=== PATIENT | male | born 1935 | race Caucasian/White ===

== ENCOUNTER 2017-09-26 09:12 | Day surgery (SDC) | payer MEDICARE, MEDICAID ==
[2017-09-25 14:53] VITALS: BMI 25.0
--- NOTE | 2017-09-26 08:09 | CP.SDSHP ---
Same Day Surgery H & P - History Proposed Procedure: colonoscopy - Previous Medical/Surgical History Previous Surgical History: prostate carcinoma radition - Date & Time Date: 09/26/17 Time: 08:09 Short Stay Discharge - Short Stay Discharge Admitting Diagnosis/Reason for Visit: APPENDICEAL MASS Disposition: HOME/ ROUTINE Referrals: Terry Dc MD [Primary Care Provider] -
[2017-09-26 09:36] VITALS: O2SAT 100
[2017-09-26] MEDS ORDERED: Lidocaine Hydrochloride 5 ML INJ ONE (11:35)
[2017-09-26] MEDS ORDERED: Propofol 10 mg/ml Inj (20 ML) ONE (11:35)
[2017-09-26 12:11] VITALS: TEMP 97.5
[2017-09-26 12:46] VITALS: BP 139/77; PULSE 76; RESP 12
== END 2017-09-26 13:23 | disposition home or self-care (01) ==
LOC: C.ENDO 09:12
PROVIDERS: ATTEND Colon & Rectal Surgery
DX: D49.0 Neoplasm of unspecified behavior of digestive system (principal); K57.30 Diverticulosis of large intestine without perforation or abscess without bleeding; K64.8 Other hemorrhoids
CPT/HCPCS: 45378; J2704

== ENCOUNTER 2017-10-13 10:33 | Day surgery (SDC) | payer MEDICARE, MEDICAID ==
[2017-09-25 14:53] VITALS: BMI 25.0
--- NOTE | 2017-10-13 11:19 | RAD ---
Date of service: 10/13/2017 HISTORY: STAT CXR DONE IN [facility].. COMPARISON: No prior. TECHNIQUE: Chest PA and lateral FINDINGS: LUNGS: No active pulmonary disease. PLEURA: No significant pleural effusion identified. No pneumothorax apparent. CARDIOVASCULAR: Atherosclerotic aortic calcifications. Cardiomediastinal silhouette within normal limits. OSSEOUS STRUCTURES: Degenerative changes. VISUALIZED UPPER ABDOMEN: Normal. OTHER FINDINGS: None. IMPRESSION: No active disease.
[2017-10-13] MEDS ORDERED: Gentamicin 160 MG in Sodium Chloride 0.9% 100 ML IVPB ONE (13:37)
[2017-10-13] MEDS ORDERED: Ciprofloxacin 400mg/200ml D5W 400 MG/200 ML BAG IVPB ONE (14:22)
[2017-10-13] MEDS ORDERED: Iohexol 240 (50 ml) ONE (14:23)
[2017-10-13] MEDS ORDERED: Propofol 10 mg/ml Inj (20 ML) ONE (14:37)
[2017-10-13] MEDS ORDERED: Lidocaine 2% Jelly (Uro-Jet) ONE ×2 (14:38→14:56)
--- NOTE | 2017-10-13 15:00 | PCM.SURG1 ---
Surgeon's Initial Post Op Note - Surgeon's Notes Surgeon: Jacqueline Supervisor Net Making: franck Type of Anesthesia: General LMA Anesthesia Administered By: staff Pre-Operative Diagnosis: BPH /hematuria Operative Findings: hematuria due to BPH Post-Operative Diagnosis: SAME Operation Performed: Cysto Specimen/Specimens Removed: na Estimated Blood Loss: EBL {In ML}: 0 Blood Products Given: N/A Drains Used: No Drains Post-Op Condition: Good Date of Surgery/Procedure: 10/13/17 Time of Surgery/Procedure: 14:59
[2017-10-13 15:18] VITALS: O2SAT 100
[2017-10-13] MEDS ORDERED: HYDROmorphone 0.5 mg/0.5 ml ISec IVP PRN (15:24)
[2017-10-13 16:48] VITALS: RESP 16
[2017-10-13 16:52] VITALS: BP 152/82; PULSE 66; TEMP 97.7
--- NOTE | 2017-10-14 00:31 | OP ---
Copied To: Jasen Phillips MD Attending MD: Jasen Phillips MD PROCEDURE DATE: 10/13/2017 PREOPERATIVE DIAGNOSIS: Hematuria. POSTOPERATIVE DIAGNOSIS: Hematuria secondary to benign prostatic hyperplasia with bladder outlet obstruction. DESCRIPTION OF PROCEDURE: As follows: The patient was asked to sign a detailed informed consent. He was given a full explanation of the risks, complications, and limitations of this procedure. He consented to the procedure, was willing to accept the risk and was brought into the room, and draped and prepped in the usual manner. He received prophylactic antibiotics. He was cystoscoped with #21 Storz panendoscope. The pendulous and membranous urethras were normal. The prostatic urethra showed trilobar hypertrophy. It was very friable and bled very easily. The bladder was entered atraumatically. There was +4 trabeculation with several small diverticulum. There was no evidence of urothelial tumor or stones. Based on these findings, the patient is a candidate for GreenLight laser to remove this friable tissue. Jasen Phillips MD
--- NOTE | 2017-10-14 08:52 | CARD ---
APPROVED REPORT Date of service: 10/13/2017 EKG Measurement Heart [id number] <Conclusion> Normal sinus rhythm Nonspecific ST abnormality Abnormal ECG
== END 2017-10-13 16:40 | disposition home or self-care (01) ==
LOC: C.SDS 10:33
PROVIDERS: ATTEND Urology
DX: N40.0 Benign prostatic hyperplasia without lower urinary tract symptoms (principal); N32.0 Bladder-neck obstruction; R31.9 Hematuria, unspecified; N32.3 Diverticulum of bladder
CPT/HCPCS: 52000; 71046; 93005; J0744; J1580

== ENCOUNTER 2018-03-19 07:45 | Inpatient (IN) | payer MEDICARE, MEDICAID ==
[2017-09-25 14:53] VITALS: BMI 25.0
[2018-03-20] MEDS ORDERED: ceFAZolin 1 gm in NS 1 GM/100 ML BAG IVPB ONE (12:16)
[2018-03-20] MEDS ORDERED: metroNIDAZOLE IV 500 mg/100 ml 500 MG/100 ML BAG ONE (12:16)
[2018-03-20] MEDS ORDERED: Propofol 10 mg/ml Inj (20 ML) ONE (12:25)
[2018-03-20] MEDS ORDERED: Rocuronium 10 mg/ml (5 ml) ONE (12:32)
[2018-03-20] MEDS ORDERED: Phenylephrine 10 mg/ml Inj ONE (12:49)
[2018-03-20] MEDS ORDERED: Morphine 4 MG/ML VIAL ONE (14:16)
[2018-03-20] MEDS ORDERED: Neostigmine 1:1000 (1 mg/ml) Inj ONE (14:42)
[2018-03-20] MEDS ORDERED: Bupivacaine Liposomal Inj 20 ml INFIL ONE (14:45)
[2018-03-20] MEDS ORDERED: Sodium Chloride 0.9% 20 ML IV ONE (14:48)
--- NOTE | 2018-03-20 15:12 | PCM.SURG1 ---
Surgeon's Initial Post Op Note - Surgeon's Notes Surgeon: Dr. Feliciano Linoleum Mechanic: Dr. Mims PGY-4 Type of Anesthesia: General Endo, Local (Explarel) Pre-Operative Diagnosis: Dilated, inflammed appendix Operative Findings: dilated, inflammed appendix, sent for frozen, no malignancy Post-Operative Diagnosis: Chronic appendicitis Operation Performed: Laparoscopic converted to open appendectomy Specimen/Specimens Removed: appendix Estimated Blood Loss: EBL {In ML}: 20 Blood Products Given: N/A Drains Used: No Drains Post-Op Condition: Fair Date of Surgery/Procedure: 03/20/18 Time of Surgery/Procedure: 15:12
[2018-03-20] MEDS: HYDROmorphone 0.5 mg/0.5 ml ISec IVP PRN ×2 (15:42→16:22)
[2018-03-20] MEDS ORDERED: Lactated Ringer's 1,000 ML IV SCH (16:15)
[2018-03-20] MEDS: metroNIDAZOLE IV 500 mg/100 ml 500 MG/100 ML BAG IVPB SCH (21:14)
[2018-03-20] MEDS: Morphine 4 MG/ML VIAL IVP PRN (22:43)
--- NOTE | 2018-03-21 01:59 | OP ---
PROCEDURE DATE: 03/20/2018 PREOPERATIVE DIAGNOSIS: Possible appendicitis. POSTOPERATIVE DIAGNOSIS: Possible appendicitis. PROCEDURE CARRIED OUT: Attempted laparoscopic and then open appendectomy. SURGEON: Kaleb Feliciano Jr., MD STITCH BONDING MACHINE TENDER HELPER: Andreia Mims DO ANESTHESIOLOGIST: Al Fung DO INDICATIONS: The patient is an elderly man with history of abdominal pain, subsequently found to have a huge cyst in his abdomen on the right side. It felt to be somehow related to his appendix. This was a number of months ago. He subsequently had followup studies done which showed that there still was a large cyst, but smaller than it had been. OPERATIVE FINDINGS: Laparoscopically, we were able to look in, identify what appeared to be a mass arising from the cecum. Attempts at dissecting this were unsuccessful. There were numerous adhesions which are documented on the chart. After we had done this, we then made the decision to opening the abdomen via lower midline incision visualize everything. I then grasped the appendix with a grasper and then with a TA-50 stapler across the base of it. After this had been done, I was satisfied with hemostasis. We placed some imbricating sutures here. We obtained hemostasis and removed the area. We then sent some specimen for frozen section and I delivered it and discussed with the pathologist who felt that this was simply appendicitis; however, permanent sections are pending. At that point, we now planned to close the patient running a suture of Novafil and PDS and closed the skin with skin clips. Blood loss for the procedure was less than 30 mL. Operation carried out was attempted laparoscopic and then open appendectomy. Kaleb Feliciano Jr., MD cc: Gonzalo Arias MD and Barbara Roberts MD
--- NOTE | 2018-03-21 02:42 | CP.PCM.PN ---
Subjective - Date & Time of Evaluation Date of Evaluation: 03/21/18 Time of Evaluation: 02:39 - Subjective Subjective: SURGERY NOTE FOR DR. MALIN 82M seen and examined at bedside. Patient states pain is controlled, complains of gas, denies nausea or vomiting. Currently denies flatus or bowel movements. States he take GERD medication at home and has reflux symptoms. He is tolerating liquid diet. Objective - Vital Signs/Intake and Output Vital Signs (last 24 hours): Temp Pulse Resp BP Pulse Ox 97.7 F 77 20 137/71 97 03/20/18 17:15 03/20/18 17:15 03/20/18 17:15 03/20/18 17:15 03/20/18 17:15 Intake and Output: 03/20/18 03/21/18 18:59 06:59 Intake Total 1550 Output Total 400 500 Balance 1150 -500 - Medications Medications: Current Medications Famotidine (Pepcid) 20 mg IVP DAILY [facility] Last Admin: 03/21/18 02:11 Dose: 20 mg Heparin Sodium (Porcine) (Heparin) 5,000 units SC Q8 [facility] Hydrochlorothiazide (Microzide) 12.5 mg PO DAILY [facility] Metronidazole (Flagyl) 500 mg in 100 mls @ 100 mls/hr IVPB Q8H [facility]; Protocol Stop: 03/21/18 21:59 Last Admin: 03/20/18 21:14 Dose: 100 mls/hr Cefazolin Sodium 1,000 mg/ (Sodium Chloride) 100 mls @ 100 mls/hr IVPB Q8H [facility]; Protocol Stop: 03/21/18 20:59 Last Admin: 03/20/18 20:14 Dose: 100 mls/hr Lactated Ringer's (Lactated Ringer's) 1,000 mls @ 50 mls/hr IV .Q20H [facility] Last Admin: 03/20/18 17:45 Dose: Not Given Losartan Potassium (Cozaar) 100 mg PO DAILY [facility] Morphine Sulfate (Morphine) 4 mg IVP Q4 PRN PRN Reason: Pain, moderate (4-7) Last Admin: 03/20/18 22:43 Dose: 4 mg Ondansetron HCl (Zofran Inj) 4 mg IVP Q4 PRN PRN Reason: Nausea/Vomiting Rosuvastatin Calcium (Crestor) 10 mg PO HS [facility] Last Admin: 03/20/18 21:14 Dose: 10 mg - Constitutional Appears: Non-toxic, No Acute Distress - Respiratory Exam Respiratory Exam: Clear to Ausculation Bilateral, NORMAL BREATHING PATTERN - Cardiovascular Exam Cardiovascular Exam: REGULAR RHYTHM, +S1, +S2 - GI/Abdominal Exam GI & Abdominal Exam: Distended (unchanged per patient), Soft, Rebound. absent: Firm, Guarding, Rigid, Tenderness Additional comments: dressing clean dry intact - Extremities Exam Extremities Exam: absent: Pedal Edema, Tenderness - Neurological Exam Neurological Exam: Alert, Awake Assessment and Plan - Assessment and Plan (Free Text) Assessment: 82M s/p ex-laparotomy, appendectomy POD#1 Plan: - Cont liquid diet - await bowel function - monitor dressing - roberto carlos-op antibiotics - DC magaña - DVT ppx Further recs per Dr. Braden Antunez, PGY3
[2018-03-21] MEDS: metroNIDAZOLE IV 500 mg/100 ml 500 MG/100 ML BAG IVPB SCH ×3 (05:56→21:08)
[2018-03-21] MEDS: Morphine 4 MG/ML VIAL IVP PRN ×2 (09:25→21:13)
[2018-03-21 12:57] LABS: HEMOGLOBIN 11.9 g/dL (12.0-18.0); MEAN CELL VOLUME 83.9 fL (80.0-94.0); MEAN CORPUSCULAR HEMOGLOBIN 28.3 pg (27.0-31.0); MEAN CORPUSCULAR HGB CONC 33.7 g/dL (33.0-37.0); RBC 4.19 Mil/uL (4.40-5.90); RED CELL DISTRIBUTION WIDTH 14.7 % (11.5-14.5); WHITE BLOOD COUNT 6.3 K/uL (4.8-10.8)
[2018-03-21 13:40] LABS: ALB/GLOB RATIO 1.7 (1.0-2.1); ALBUMIN 3.7 g/dL (3.5-5.0); ALT/SGPT 14 U/L (21-72); AST/SGOT 28 U/L (17-59); BLOOD UREA NITROGEN 22 mg/dL (9-20); CALCIUM 8.4 mg/dl (8.6-10.4); GFR NON-AFRICAN AMERICAN > 60
--- NOTE | 2018-03-21 14:08 | RAD ---
Date of service: 03/21/2018 HISTORY: abd distention COMPARISON: Abdomen pelvis CT 02/09/2018. FINDINGS: BOWEL: A nonobstructive bowel gas pattern is appreciated with likely postoperative bowel ileus identified. Gas distends small as well as large bowel loops with moderate amount retained material scattered within large bowel. Skin yessi are identified at the midline inferior abdomen pelvis. No definitive abnormal intra-abdominal calcifications appreciable. No gross intra peritoneal gas collection identified. BONES: Normal. OTHER FINDINGS: None. IMPRESSION: Likely postoperative ileus. Clinical follow-up recommended.
[2018-03-22 06:46] LABS: HEMOGLOBIN 12.9 g/dL (12.0-18.0); MEAN CELL VOLUME 83.2 fL (80.0-94.0); MEAN CORPUSCULAR HEMOGLOBIN 28.5 pg (27.0-31.0); MEAN CORPUSCULAR HGB CONC 34.2 g/dL (33.0-37.0); MEAN PLATELET VOLUME 8.2 fL (7.2-11.7); RBC 4.54 Mil/uL (4.40-5.90); RED CELL DISTRIBUTION WIDTH 14.7 % (11.5-14.5); WHITE BLOOD COUNT 8.5 K/uL (4.8-10.8)
[2018-03-22 07:00] LABS: ALB/GLOB RATIO 1.8 (1.0-2.1); ALBUMIN 3.8 g/dL (3.5-5.0); ALT/SGPT 14 U/L (21-72); AST/SGOT 27 U/L (17-59); BLOOD UREA NITROGEN 18 mg/dL (9-20); CALCIUM 8.8 mg/dl (8.6-10.4); GFR NON-AFRICAN AMERICAN > 60
--- NOTE | 2018-03-22 07:56 | CP.PCM.PN ---
Subjective - Date & Time of Evaluation Date of Evaluation: 03/22/18 Time of Evaluation: 06:35 - Subjective Subjective: General surgery progress note for Dr. Feliciano Patient seen and examined this am at bedside. He states he was able to have a small BM and pass flatus this AM. he indicates that his distention is also improved. He continues to have abdominal pain in the right lower quadrant but states that it is well controlled on current medications. He additionally indicates that his BM was hard this morning and requests a suppository. Patient otherwise denies ZAMARRIPA, CP, SOB, n/v, f/c, dysuria and pain/numbness in the extremities. Objective - Vital Signs/Intake and Output Vital Signs (last 24 hours): Temp Pulse Resp BP Pulse Ox 98.7 F 84 20 130/76 95 03/21/18 23:50 03/21/18 23:50 03/21/18 23:50 03/21/18 23:50 03/21/18 23:50 Intake and Output: 03/22/18 03/22/18 06:59 18:59 Intake Total 550 Balance 550 - Medications Medications: Current Medications Famotidine (Pepcid) 20 mg IVP DAILY [facility] Last Admin: 03/21/18 09:24 Dose: 20 mg Heparin Sodium (Porcine) (Heparin) 5,000 units SC Q8 [facility] Last Admin: 03/22/18 05:52 Dose: 5,000 units Hydrochlorothiazide (Microzide) 12.5 mg PO DAILY [facility] Last Admin: 03/21/18 09:24 Dose: 12.5 mg Lactated Ringer's (Lactated Ringer's) 1,000 mls @ 50 mls/hr IV .Q20H [facility] Last Admin: 03/20/18 17:45 Dose: Not Given Losartan Potassium (Cozaar) 100 mg PO DAILY [facility] Last Admin: 03/21/18 09:24 Dose: 100 mg Morphine Sulfate (Morphine) 4 mg IVP Q4 PRN PRN Reason: Pain, moderate (4-7) Last Admin: 03/21/18 21:13 Dose: 4 mg Ondansetron HCl (Zofran Inj) 4 mg IVP Q4 PRN PRN Reason: Nausea/Vomiting Rosuvastatin Calcium (Crestor) 10 mg PO HS [facility] Last Admin: 03/21/18 21:13 Dose: 10 mg - Labs Labs: 03/22/18 06:42 03/22/18 06:42 - Constitutional Appears: Well, Non-toxic, No Acute Distress - Head Exam Head Exam: ATRAUMATIC, NORMOCEPHALIC - Eye Exam Eye Exam: EOMI - ENT Exam ENT Exam: Mucous Membranes Moist - Respiratory Exam Respiratory Exam: NORMAL BREATHING PATTERN - Cardiovascular Exam Cardiovascular Exam: REGULAR RHYTHM - GI/Abdominal Exam GI & Abdominal Exam: Distended (improved from exam yesterday), Soft, Tenderness (RLQ). absent: Firm, Guarding - Extremities Exam Extremities Exam: absent: Calf Tenderness, Pedal Edema - Neurological Exam Neurological Exam: Alert, Awake, Oriented x3 - Psychiatric Exam Psychiatric exam: Normal Affect, Normal Mood - Skin Skin Exam: Dry, Intact, Normal Color, Warm Assessment and Plan - Assessment and Plan (Free Text) Assessment: 82 yr old male s/p Laparoscopic converted to open appendectomy POD 2 Plan: Plan: continue with CLD encourage ambulation and OOBTC continue to monitor dressing DVT ppx will discuss with Dr. Feliciano, further recs per him Anupama Goldman, PGY 1
[2018-03-22] MEDS ORDERED: Potassium Chloride 20 mEq/15 ml LIQ UD PO ONE (08:30)
[2018-03-22] MEDS: Magnesium Sulfate 1 gm in D5W 1 GM/100 ML BAG IVPB SCH ×2 (08:38→10:22)
[2018-03-22] MEDS: Sodium Chloride 0.9% 1,000 ML IV SCH ×2 (08:44→21:20)
[2018-03-23] MEDS: Sodium Chloride 0.9% 1,000 ML IV SCH ×4 (01:03→20:24)
[2018-03-23 08:28] LABS: HEMOGLOBIN 14.6 g/dL (12.0-18.0); MEAN CELL VOLUME 83.5 fL (80.0-94.0); MEAN CORPUSCULAR HEMOGLOBIN 28.3 pg (27.0-31.0); MEAN CORPUSCULAR HGB CONC 33.8 g/dL (33.0-37.0); MEAN PLATELET VOLUME 8.4 fL (7.2-11.7); RBC 5.17 Mil/uL (4.40-5.90); RED CELL DISTRIBUTION WIDTH 14.9 % (11.5-14.5); WHITE BLOOD COUNT 10.2 K/uL (4.8-10.8)
[2018-03-23 09:05] LABS: ALB/GLOB RATIO 1.5 (1.0-2.1); ALBUMIN 4.1 g/dL (3.5-5.0); ALT/SGPT 15 U/L (21-72); AST/SGOT 28 U/L (17-59); BLOOD UREA NITROGEN 29 mg/dL (9-20); CALCIUM 8.9 mg/dl (8.6-10.4); GFR NON-AFRICAN AMERICAN > 60
--- NOTE | 2018-03-23 09:48 | CP.PCM.PN ---
Subjective - Date & Time of Evaluation Date of Evaluation: 03/23/18 Time of Evaluation: 07:00 - Subjective Subjective: Surgery: Dr. Feliciano Pt seen and examined. Overnight pt states he had one episode of vomiting and he states he feels bloated. Denies any pain but admits to feeling uncomfortable due to abdominal distention. Pt states he had a small BM after the dulcolax suppository yest but denies flatus. Admits to ambulating. Denies fevers/chills. Objective - Vital Signs/Intake and Output Vital Signs (last 24 hours): Temp Pulse Resp BP Pulse Ox 98.8 F 105 H 20 133/86 94 L 03/23/18 09:09 03/23/18 09:09 03/23/18 09:09 03/23/18 09:09 03/23/18 09:09 Intake and Output: 03/23/18 03/23/18 06:59 18:59 Intake Total 664 Output Total 300 Balance 364 - Medications Medications: Current Medications Diphenhydramine HCl (Benadryl) 50 mg PO HS PRN PRN Reason: Insomnia Heparin Sodium (Porcine) (Heparin) 5,000 units SC Q8 [facility] Last Admin: 03/23/18 05:37 Dose: 5,000 units Hydrochlorothiazide (Microzide) 12.5 mg PO DAILY [facility] Last Admin: 03/22/18 10:24 Dose: 12.5 mg Sodium Chloride (Sodium Chloride 0.9%) 1,000 mls @ 83 mls/hr IV .Q12H3M [facility] Last Admin: 03/23/18 01:03 Dose: 83 mls/hr Losartan Potassium (Cozaar) 100 mg PO DAILY [facility] Last Admin: 03/22/18 10:24 Dose: 100 mg Metoclopramide HCl (Reglan) 10 mg IVP Q8 [facility] Last Admin: 03/23/18 05:37 Dose: 10 mg Morphine Sulfate (Morphine) 4 mg IVP Q4 PRN PRN Reason: Pain, moderate (4-7) Last Admin: 03/21/18 21:13 Dose: 4 mg Ondansetron HCl (Zofran Inj) 4 mg IVP Q4 PRN PRN Reason: Nausea/Vomiting Last Admin: 03/23/18 02:07 Dose: 4 mg Pantoprazole Sodium (Protonix Inj) 40 mg IVP DAILY [facility] Last Admin: 03/23/18 02:30 Dose: 40 mg Rosuvastatin Calcium (Crestor) 10 mg PO HS [facility] Last Admin: 03/22/18 22:03 Dose: 10 mg - Labs Labs: 03/23/18 08:24 03/23/18 08:24 - Constitutional Appears: Well, No Acute Distress - Head Exam Head Exam: ATRAUMATIC, NORMOCEPHALIC - Eye Exam Eye Exam: Normal appearance - ENT Exam ENT Exam: Mucous Membranes Moist - Respiratory Exam Respiratory Exam: NORMAL BREATHING PATTERN - Cardiovascular Exam Cardiovascular Exam: Tachycardia - GI/Abdominal Exam GI & Abdominal Exam: Distended, Soft. absent: Tenderness Additional comments: midline incision with yessi; C/D/I - Neurological Exam Neurological Exam: Alert, Awake, Oriented x3 - Skin Skin Exam: Dry, Warm Assessment and Plan - Assessment and Plan (Free Text) Assessment: 82M s/p lap converted to open appendectomy; POD#3 Plan: - keep NPO for now - will insert NGT if pt is to vomit again - monitor Is&Os - serial abdominal exams - monitor bowel function - d/w Dr. Braden Perera
[2018-03-24] MEDS: Sodium Chloride 0.9% 1,000 ML IV SCH ×4 (02:32→18:44)
--- NOTE | 2018-03-24 10:30 | CP.PCM.PN ---
Subjective - Date & Time of Evaluation Date of Evaluation: 03/24/18 Time of Evaluation: 07:00 - Subjective Subjective: SURGERY PROGRESS NOTE FOR DR. MALIN Patient seen and examined at bedside. Patient denies nausea or vomiting. Had dulcolax yesterday but no BM or flatus. Denies abdominal pain. Objective - Vital Signs/Intake and Output Vital Signs (last 24 hours): Temp Pulse Resp BP Pulse Ox 98.2 F 134 H 18 117/72 94 L 03/24/18 09:16 03/24/18 10:19 03/24/18 10:19 03/24/18 10:19 03/24/18 10:19 Intake and Output: 03/24/18 03/24/18 06:59 18:59 Intake Total 1328 Output Total 400 Balance 928 - Medications Medications: Current Medications Diphenhydramine HCl (Benadryl) 50 mg PO HS PRN PRN Reason: Insomnia Erythromycin (Erythromycin) 250 mg PO TID [facility]; Protocol Last Admin: 03/24/18 09:45 Dose: 250 mg Heparin Sodium (Porcine) (Heparin) 5,000 units SC Q8 [facility] Last Admin: 03/24/18 06:09 Dose: 5,000 units Hydrochlorothiazide (Microzide) 12.5 mg PO DAILY [facility] Last Admin: 03/24/18 10:00 Dose: Not Given Sodium Chloride (Sodium Chloride 0.9%) 1,000 mls @ 83 mls/hr IV .Q12H3M [facility] Last Admin: 03/24/18 02:32 Dose: 83 mls/hr Losartan Potassium (Cozaar) 100 mg PO DAILY [facility] Last Admin: 03/24/18 09:59 Dose: Not Given Metoclopramide HCl (Reglan) 10 mg IVP Q8 [facility] Last Admin: 03/24/18 06:09 Dose: 10 mg Morphine Sulfate (Morphine) 4 mg IVP Q4 PRN PRN Reason: Pain, moderate (4-7) Last Admin: 03/21/18 21:13 Dose: 4 mg Ondansetron HCl (Zofran Inj) 4 mg IVP Q4 PRN PRN Reason: Nausea/Vomiting Last Admin: 03/23/18 02:07 Dose: 4 mg Pantoprazole Sodium (Protonix Inj) 40 mg IVP DAILY [facility] Last Admin: 03/24/18 09:45 Dose: 40 mg Rosuvastatin Calcium (Crestor) 10 mg PO HS [facility] Last Admin: 03/23/18 22:07 Dose: 10 mg - Labs Labs: 03/23/18 08:24 03/23/18 08:24 - Constitutional Appears: Non-toxic, No Acute Distress - Head Exam Head Exam: ATRAUMATIC, NORMAL INSPECTION - Eye Exam Eye Exam: EOMI, Normal appearance - Respiratory Exam Respiratory Exam: NORMAL BREATHING PATTERN. absent: Respiratory Distress - Cardiovascular Exam Cardiovascular Exam: +S1, +S2 - GI/Abdominal Exam GI & Abdominal Exam: Distended, Soft. absent: Firm, Guarding, Rigid, Tenderness, Rebound Additional comments: Lower midline incision w/ dressing clean/dry/intact Distended abdomen, tympanic to percussion - Neurological Exam Neurological Exam: Alert, Awake, Oriented x3 - Psychiatric Exam Psychiatric exam: Normal Affect, Normal Mood - Skin Skin Exam: Dry, Normal Color, Warm Assessment and Plan - Assessment and Plan (Free Text) Assessment: 82yo M with PMHx HTN, hyperlipidemia, prostate cancer s/p Laparoscopic converted to open appendectomy POD#4 with post op ileus and pneumonia - Tachycardic, SOB, placed on non rebreather, Duo Nebs ordered - CTA ordered to rule out PE: no PE, bilateral pleural effusions, multifocal pneumonia - Started on Abx - EKG ordered - Encourage IS and ambulation - Continue PT - NG tube inserted - Monitor for bowel function, serial abdominal exams - Dr. Vargas and Dr. Torres consulted - DVT PPx: heparin - Discussed plan with Dr. Braden Mims PGY-4
[2018-03-24] MEDS ORDERED: Iodixanol 320 MG/ML 100 ML BOTTLE IV ONE ×2 (11:30→11:46)
[2018-03-24 11:35] LABS: BASO % 0.1 % (0.0-2.0); EOS % 0.1 % (0.0-4.0); HEMOGLOBIN 12.8 g/dL (12.0-18.0); LYMPH # 0.6 K/uL (1.0-4.3); MEAN CELL VOLUME 83.3 fL (80.0-94.0); MEAN CORPUSCULAR HEMOGLOBIN 27.7 pg (27.0-31.0); MEAN CORPUSCULAR HGB CONC 33.3 g/dL (33.0-37.0); MEAN PLATELET VOLUME 8.8 fL (7.2-11.7); MONO # 0.7 K/uL (0.0-0.8); MONO % 7.5 % (0.0-10.0); NEUT # 8.3 K/uL (1.8-7.0); NEUT % 86.3 % (50.0-75.0); NRBC % 0.1 % (0.0-2.0); PLATELET COUNT 306 K/uL (130-400); RBC 4.61 Mil/uL (4.40-5.90); RED CELL DISTRIBUTION WIDTH 14.7 % (11.5-14.5); WHITE BLOOD COUNT 9.6 K/uL (4.8-10.8)
[2018-03-24 12:07] LABS: ALB/GLOB RATIO 1.4 (1.0-2.1); ALBUMIN 3.3 g/dL (3.5-5.0); ALT/SGPT 12 U/L (21-72); AST/SGOT 24 U/L (17-59); BANDS 27 % (0-2); BLOOD UREA NITROGEN 44 mg/dL (9-20); BURR CELLS SLIGHT; CALCIUM 7.7 mg/dl (8.6-10.4); GFR NON-AFRICAN AMERICAN 53; LYMPHOCYTE 7 % (20-40); MONOCYTE 5 % (0-10); NEUTROPHIL 59 % (50-75); OVALOCYTES SLIGHT; PLATELET ESTIMATE NORMAL (NORMAL); REACTIVE LYMPHOCYTES 2 % (0-0); TOTAL CELLS COUNTED 100
--- NOTE | 2018-03-24 12:43 | CT ---
Date of service: 03/24/2018 CTA chest PE protocol Indication: sob, tachycardia, post-op Technique: Contiguous axial images were obtained through the chest with intravenous contrast enhancement. Sagittal and coronal reconstructions were generated and reviewed. This CT exam was performed using 1 or more of the following dose reduction techniques: Automated exposure control, adjustment of the MAA and/or kV according to patient size, and/or use of iterative reconstruction technique. IV contrast: 100 mL Visipaque 320 IV Radiation dose (DLP): 1086.65 MGy-cm. Comparison: Chest x-ray performed 10/13/17 Findings: Visualized portions of the inferior thyroid gland appear unremarkable. The mediastinal and hilar vascular structures appear within normal limits. The heart appears within normal limits of size. No large central or segmental pulmonary embolus evident. Small bilateral pleural effusions and associated dependent consolidations. Lingula and right upper lobe consolidations consistent with pneumonia. Large amount of fluid within the esophagus consistent with severe gastroesophageal reflux. Coarse large calcifications adjacent to the mid to distal esophagus, possibly lymph nodes. Limited visualized portions of the upper abdomen: Small perihepatic ascites. Partially imaged distended fluid-filled bowel loops; correlate clinically for ileus. Partially imaged diverticulosis. Elevation. Degenerative changes of the spine. Impression: No large central or segmental pulmonary embolus identified. Small bilateral pleural effusions and associated dependent consolidations. Lingula and right upper lobe consolidations consistent with multifocal pneumonia. Large amount of fluid within the esophagus consistent with severe gastroesophageal reflux. Coarse large calcifications adjacent to the mid to distal esophagus, possibly lymph nodes. Limited visualized portions of the upper abdomen: Small perihepatic ascites. Partially imaged distended fluid-filled bowel loops; correlate clinically for ileus. Partially imaged diverticulosis.
--- NOTE | 2018-03-24 14:53 | RAD ---
Date of service: 03/24/2018 HISTORY: ng tube placement confirmation COMPARISON: 10/13/2017 FINDINGS: LUNGS: Interval coalescent patchy/mildly heterogeneous airspace pathology left mid lung zone. More denser consolidation left lung base inferred. Interval strandy bandlike airspace opacity project diagonally from the right hilum towards the right upper lung zone PLEURA: Small left pleural effusion probable. No pneumothorax apparent. CARDIOVASCULAR: There is presence of aortic atherosclerotic calcification on x-ray. Cardiomegaly-similar concomitant mild pulmonary venous congestion probable. Lung volumes are shallow in lung markings are crowded/accentuated as a result. OSSEOUS STRUCTURES: No significant abnormalities. VISUALIZED UPPER ABDOMEN: Interval insertion NG tube-its tip courses towards the gastric antrum OTHER FINDINGS: None. IMPRESSION: Interval bilateral airspace opacities; left greater than right. Bilat infiltrates compatible with this. Follow-up to complete resolution recommended particular regarding the nodular configuration in the left mid lung zone. NG tube tip in gastric antrum. Other findings as above.
--- NOTE | 2018-03-24 15:14 | CT ---
PROCEDURE: CT Abdomen and Pelvis without Oral or IV contrast. HISTORY: gaseous abdominal distension COMPARISON: CT abdomen and pelvis with oral contrast performed 02/09/18 TECHNIQUE: Contiguous axial images of the abdomen and pelvis. No oral or IV contrast administered. Coronal and Sagittal reformats generated and reviewed. Radiation dose: Total exam DLP = 1046.97 mGy-cm. This CT exam was performed using one or more of the following dose reduction techniques: Automated exposure control, adjustment of the mA and/or kV according to patient size, and/or use of iterative reconstruction technique. FINDINGS: There is limited evaluation of the solid organs without the administration of IV contrast. LOWER THORAX: Small bilateral pleural effusions and right greater than left lower lobe consolidations. No visible pneumothorax. Large amount of fluid within the included portions of the dilated esophagus consistent with gastroesophageal reflux. Coarse calcifications bilaterally adjacent to the distal esophagus. LIVER: Small perihepatic ascites versus subcapsular fluid. Liver appears otherwise unremarkable. GALLBLADDER AND BILE DUCTS: Unremarkable. PANCREAS: Fatty atrophy. SPLEEN: Unremarkable. ADRENALS: Nodular adrenal gland hyperplasia, bilateral. KIDNEYS AND URETERS: Bilateral renal atrophy. No hydronephrosis or obstructing renal calculus. BLADDER: Decompressed urinary bladder limits evaluation. Air within the urinary bladder; correlate clinically for history of recent instrumentation versus infection. REPRODUCTIVE: Prostate radiation seeds. APPENDIX: Appendix is not identified. No secondary signs of acute appendicitis appreciated. BOWEL: Fluid-filled distended stomach. Dilated fluid and gas filled small bowel measuring up to 4.9 cm in diameter; question presence of transition zone within the right mid abdomen. Appearance concerning for small bowel obstruction versus postoperative ileus. PERITONEUM: No significant free fluid. No definite free air. LYMPH NODES: No bulky lymphadenopathy identified. VASCULATURE: Atherosclerotic calcifications of the aorta. No aortic aneurysm. BONES: Osseous demineralization. Degenerative changes. OTHER FINDINGS: Midline surgical yessi. Subcutaneous gas, bilateral groin, likely related to recent surgical intervention. IMPRESSION: Midline abdominal surgical yessi. Fluid-filled distended stomach. Dilated fluid and gas filled small bowel measuring up to 4.9 cm in diameter; appearance concerning for small bowel obstruction versus ileus. Small subcapsular hepatic fluid versus small ascites. Gas within the urinary bladder may be secondary to recent instrumentation. Correlate clinically. Infection not excluded in the proper clinical setting. Prostate radiation seeds. Bilateral lower lobe consolidations and small pleural effusions. Large amount of fluid within the included portions of the dilated esophagus consistent with gastroesophageal reflux. Additional incidental findings as above. Preliminary impression was provided by [facility] [facility].
--- NOTE | 2018-03-24 16:15 | RAD ---
Date of service: 03/24/2018 HISTORY: ng tube placement COMPARISON: 2018 Time of the most recent examination: 13:45. FINDINGS: LUNGS: Stable multifocal infiltrates. PLEURA: No significant pleural effusion identified, no pneumothorax apparent. CARDIOVASCULAR: No atherosclerotic calcification present Normal. OSSEOUS STRUCTURES: No significant abnormalities. VISUALIZED UPPER ABDOMEN: Normal. OTHER FINDINGS: No change in nasogastric tube placement/position. IMPRESSION: No significant interval change compared to the prior examination(s).
[2018-03-24] MEDS ORDERED: Albuterol-Ipratrop 3 mg / 0.5 (3 ml) UD INH PRN (20:46)
[2018-03-25] MEDS: Sodium Chloride 0.9% 1,000 ML IV SCH ×2 (03:18→22:53)
[2018-03-25 08:14] LABS: BASO % 0.3 % (0.0-2.0); HEMOGLOBIN 11.3 g/dL (12.0-18.0); LYMPH # 1.1 K/uL (1.0-4.3); LYMPH % 10.8 % (20.0-40.0); MEAN CELL VOLUME 84.3 fL (80.0-94.0); MEAN CORPUSCULAR HEMOGLOBIN 28.4 pg (27.0-31.0); MEAN CORPUSCULAR HGB CONC 33.7 g/dL (33.0-37.0); MEAN PLATELET VOLUME 8.7 fL (7.2-11.7); MONO % 9.5 % (0.0-10.0); NEUT % 79.4 % (50.0-75.0); NRBC % 0.1 % (0.0-2.0); RBC 3.98 Mil/uL (4.40-5.90); RED CELL DISTRIBUTION WIDTH 14.9 % (11.5-14.5)
[2018-03-25 08:35] LABS: ALB/GLOB RATIO 1.3 (1.0-2.1); ALBUMIN 3.2 g/dL (3.5-5.0); ALT/SGPT 14 U/L (21-72); AST/SGOT 23 U/L (17-59); BLOOD UREA NITROGEN 40 mg/dL (9-20); CALCIUM 7.4 mg/dl (8.6-10.4); GFR NON-AFRICAN AMERICAN > 60
--- NOTE | 2018-03-25 09:54 | CP.PCM.PN ---
Subjective - Date & Time of Evaluation Date of Evaluation: 03/25/18 Time of Evaluation: 06:15 - Subjective Subjective: General Surgery Dr. Feliciano Pt S&E @bedside. No acute events overnight. pt reports improved distention this AM. (+)BM/Flatus overnight. NPO w/ NGT in place. denies OOB to chair/Amb yesterday. Objective - Vital Signs/Intake and Output Vital Signs (last 24 hours): Temp Pulse Resp BP Pulse Ox 98.2 F 91 H 20 157/94 H 94 L 03/25/18 09:08 03/25/18 09:08 03/25/18 09:08 03/25/18 09:08 03/25/18 09:08 Intake and Output: 03/25/18 03/25/18 06:59 18:59 Intake Total 1340 1220 Output Total 150 50 Balance 1190 1170 - Medications Medications: Current Medications Albuterol/Ipratropium (Duoneb 3 Mg/0.5 Mg (3 Ml) Ud) 3 ml INH RQ2 PRN PRN Reason: Shortness of Breath Last Admin: 03/24/18 21:55 Dose: 3 ml Heparin Sodium (Porcine) (Heparin) 5,000 units SC Q8 [facility] Last Admin: 03/25/18 05:09 Dose: 5,000 units Sodium Chloride (Sodium Chloride 0.9%) 1,000 mls @ 115 mls/hr IV .Q8H42M [facility] Last Admin: 03/25/18 03:18 Dose: 115 mls/hr Cefepime HCl 1 gm/ Dextrose 50 mls @ 100 mls/hr IVPB Q12H [facility]; Protocol Last Admin: 03/25/18 05:08 Dose: 100 mls/hr Vancomycin HCl 1,000 mg/ (Sodium Chloride) 250 mls @ 166.6 mls/hr IVPB Q12H [facility]; Protocol Last Admin: 03/25/18 06:56 Dose: 166.6 mls/hr Potassium Chloride (Potassium Chloride 20 Meq/100 Ml) 20 meq in 100 mls @ 50 mls/hr IVPB Q2 [facility] Stop: 03/25/18 13:59 Metoclopramide HCl (Reglan) 10 mg IVP Q8 [facility] Last Admin: 03/25/18 05:18 Dose: 10 mg Morphine Sulfate (Morphine) 2 mg IVP Q4 PRN PRN Reason: Pain, moderate (4-7) Ondansetron HCl (Zofran Inj) 4 mg IVP Q4 PRN PRN Reason: Nausea/Vomiting Last Admin: 03/23/18 02:07 Dose: 4 mg Pantoprazole Sodium (Protonix Inj) 40 mg IVP DAILY [facility] Last Admin: 03/24/18 09:45 Dose: 40 mg - Labs Labs: 03/25/18 08:06 03/25/18 08:06 - Constitutional Appears: Non-toxic, No Acute Distress - Head Exam Head Exam: NORMAL INSPECTION - Eye Exam Eye Exam: Normal appearance - ENT Exam ENT Exam: Mucous Membranes Moist Additional comments: NGT in place, gastric contents in canister - Respiratory Exam Respiratory Exam: NORMAL BREATHING PATTERN. absent: Accessory Muscle Use, Respiratory Distress Additional comments: Oxymask in place - Cardiovascular Exam Cardiovascular Exam: REGULAR RHYTHM. absent: Bradycardia, Tachycardia - GI/Abdominal Exam GI & Abdominal Exam: Distended (improved distention), Soft. absent: Firm, Guarding, Rigid, Tenderness, Rebound Additional comments: incision c/d/i - Extremities Exam Extremities Exam: Normal Inspection - Neurological Exam Neurological Exam: Alert, Awake - Psychiatric Exam Psychiatric exam: Normal Affect, Normal Mood - Skin Skin Exam: Dry, Intact, Normal Color, Warm Assessment and Plan - Assessment and Plan (Free Text) Assessment: 82 y/o M POD#5 s/p lap converted to open appendectomy, now w/ post-op ileus Plan: - wean O2 - clamp NGT for 4hrs then check residuals - cont pain management - dulcolax ME --> monitor bowel fxn - cont reglan - f/u Pulm and GI recs - replace K for hypokalemia - encourage OOB to chair/Amb Q6hrs while awake - aggressive Pulm toilet, IS/Acapella use Pt discussed w/ Dr. Braden Howe DO PGY3
--- NOTE | 2018-03-25 21:08 | CON ---
DATE: 03/25/2018 HISTORY OF PRESENT ILLNESS: Mr. Barrera is an 82-year-old male admitted to the hospital with abdominal pain. The patient did have abdominal surgery, postop he is having ileus. Chest x-ray showed left side pneumonia. The patient was started on antibiotics. The patient abdominal distention; however, he says he passed some gas this morning. The patient is a nonsmoker. PHYSICAL EXAMINATION: GENERAL: The patient is awake, alert, oriented. VITAL SIGNS: Temperature 99, pulse 90, blood pressure 110/70. HEENT: Within normal limits. NECK: Supple. CHEST: Symmetrical. HEART: Regular. ABDOMEN: Distended. EXTREMITIES: No edema. LABORATORY DATA: Chest x-ray consolidation lung ramires on x-ray. ASSESSMENT: The patient is status post abdominal surgery. Postoperative ileus. Pneumonia. PLAN: At this point, he should get intravenous antibiotics, bronchodilator, incentive spirometry. Madonna Torres MD
--- NOTE | 2018-03-25 23:01 | PN ---
DATE: 03/25/2018 LOCATION: 1, bed A. SUBJECTIVE: This is an 82-year-old male, seen and examined initially for GI consultation on 03/24/2018 as requested by the admitting MVinod, reexamined again today, passing gas with small soft bowel movement post Dulcolax intake. The patient has less abdominal pain, much less abdominal distention and still with NG tube in place. No reported chest pain or palpitation, evidence of active bleeding or significant shortness of breath. No reported chills or fever. Most recent lab results today showed hemoglobin 11.3, hematocrit 33.5 with normal platelet count. Potassium 30.4, CO2 content of 16 indicative of metabolic acidosis, BUN 40, creatinine normal, calcium 7.4, magnesium 2.6 with albumin 3.2, low. Lipase and amylase level reported to be normal as well as CEA and CA19-9. Most recently done chest x-ray yesterday, official report is seen with evidence of multifocal infiltrate. PHYSICAL EXAMINATION: GENERAL: An 82-year-old male. VITAL SIGNS: Afebrile with pulse of 84, respiratory rate 20-22, blood pressure of 146/80. HEENT: Showed pale dry oral mucous membrane. Nonicteric sclerae. LUNGS: Few scattered crepitation. Decreased air entry at bases. HEART: Positive S1 and S2. ABDOMEN: Soft with mild generalized tenderness. No mass or organomegaly. No rebound tenderness or guarding. Bowel sounds are present, but hypoactive, NG tube is still in place. EXTREMITIES: Without significant edema, clubbing or cyanosis. NEUROLOGIC: No reported new neurological deficits, sensory or motor. IMPRESSION: 1. Status post appendectomy. 2. Postoperative paralytic ileus, most likely with abdominal distention, gradually improving. The patient is passing gas and small bowel movement. 3. Multifocal lung infiltrate, pneumonia. 4. Anemia, most likely secondary to above. 5. Electrolyte imbalance with dehydration and prerenal azotemia as well as hypocalcemia, hypokalemia and hypoalbuminemia secondary to malnutrition. SUGGESTIONS: 1. Continue current management. 2. Peripheral hyperalimentation. 3. Repeat flat and upright abdominal x-ray. 4. Further recommendation to follow. Mary Tesfaye MD [facility] # [id number]
[2018-03-26 07:45] LABS: BASO % 0.1 % (0.0-2.0); EOS % 0.2 % (0.0-4.0); HEMOGLOBIN 10.2 g/dL (12.0-18.0); LYMPH # 1.1 K/uL (1.0-4.3); LYMPH % 12.5 % (20.0-40.0); MEAN CELL VOLUME 83.8 fL (80.0-94.0); MEAN CORPUSCULAR HGB CONC 34.7 g/dL (33.0-37.0); MEAN PLATELET VOLUME 8.6 fL (7.2-11.7); MONO # 1.1 K/uL (0.0-0.8); MONO % 12.4 % (0.0-10.0); NEUT # 6.7 K/uL (1.8-7.0); NEUT % 74.8 % (50.0-75.0); NRBC % 0.1 % (0.0-2.0); RBC 3.5 Mil/uL (4.40-5.90); WHITE BLOOD COUNT 8.9 K/uL (4.8-10.8)
[2018-03-26 08:01] LABS: ALB/GLOB RATIO 1.2 (1.0-2.1); ALBUMIN 2.6 g/dL (3.5-5.0); ALT/SGPT 20 U/L (21-72); AST/SGOT 24 U/L (17-59); BLOOD UREA NITROGEN 25 mg/dL (9-20); GFR NON-AFRICAN AMERICAN > 60
--- NOTE | 2018-03-26 12:31 | CP.PCM.PN ---
Subjective - Date & Time of Evaluation Date of Evaluation: 03/26/18 Time of Evaluation: 07:00 - Subjective Subjective: GENERAL SURGERY PROGRESS NOTE FOR DR. MALIN Patient seen and examined at bedside. Had a BM and NG tube was removed yesterday. Pt tolerating CLD. Passing flatus. Denies nausea or vomiting or abdominal pain. Objective - Vital Signs/Intake and Output Vital Signs (last 24 hours): Temp Pulse Resp BP Pulse Ox 98.3 F 81 20 127/66 97 03/26/18 08:48 03/26/18 08:48 03/26/18 08:48 03/26/18 08:48 03/26/18 08:48 Intake and Output: 03/26/18 03/26/18 06:59 18:59 Intake Total 2270 Output Total 601 Balance 1669 - Medications Medications: Current Medications Albuterol/Ipratropium (Duoneb 3 Mg/0.5 Mg (3 Ml) Ud) 3 ml INH RQ2 PRN PRN Reason: Shortness of Breath Last Admin: 03/24/18 21:55 Dose: 3 ml Heparin Sodium (Porcine) (Heparin) 5,000 units SC Q8 [facility]OB Last Admin: 03/26/18 05:48 Dose: 5,000 units Sodium Chloride (Sodium Chloride 0.9%) 1,000 mls @ 115 mls/hr IV .Q8H42M [facility] Last Admin: 03/25/18 22:53 Dose: 115 mls/hr Cefepime HCl 1 gm/ Dextrose 50 mls @ 100 mls/hr IVPB Q12H [facility]; Protocol Last Admin: 03/26/18 04:59 Dose: 100 mls/hr Vancomycin HCl 1,000 mg/ (Sodium Chloride) 250 mls @ 166.6 mls/hr IVPB Q12H [facility]; Protocol Last Admin: 03/26/18 05:47 Dose: 166.6 mls/hr Metoclopramide HCl (Reglan) 10 mg IVP Q8 [facility] Last Admin: 03/26/18 05:48 Dose: 10 mg Morphine Sulfate (Morphine) 2 mg IVP Q4 PRN PRN Reason: Pain, moderate (4-7) Ondansetron HCl (Zofran Inj) 4 mg IVP Q4 PRN PRN Reason: Nausea/Vomiting Last Admin: 03/23/18 02:07 Dose: 4 mg Pantoprazole Sodium (Protonix Inj) 40 mg IVP DAILY [facility]OB Last Admin: 03/25/18 10:18 Dose: 40 mg - Labs Labs: 03/26/18 07:26 03/26/18 07:26 - Constitutional Appears: Non-toxic, No Acute Distress - Head Exam Head Exam: ATRAUMATIC, NORMAL INSPECTION - Eye Exam Eye Exam: EOMI, Normal appearance - Respiratory Exam Respiratory Exam: NORMAL BREATHING PATTERN. absent: Respiratory Distress - Cardiovascular Exam Cardiovascular Exam: +S1, +S2 - GI/Abdominal Exam GI & Abdominal Exam: Distended (remains distended but significantly improved), Soft. absent: Firm, Guarding, Rigid, Tenderness, Rebound Additional comments: Dressing clean/dry/intact - Neurological Exam Neurological Exam: Alert, Awake, Oriented x3 - Psychiatric Exam Psychiatric exam: Normal Affect, Normal Mood - Skin Skin Exam: Dry, Warm Assessment and Plan - Assessment and Plan (Free Text) Assessment: 82yo M with PMHx HTN, hyperlipidemia, prostate cancer s/p Laparoscopic converted to open appendectomy POD#6 with post op ileus and pneumonia - Hypokalemic and low phos - replaced both - Pt passing flatus & having BMs, tolerating CLD, advanced to full liquids - Decreased IV fluid rate, will DC if taking enough liquids - Continue Abx for pneumonia - Encourage IS and ambulation - Continue PT - DVT PPx: heparin - Discussed plan with Dr. Braden Mims PGY-4
[2018-03-26] MEDS ORDERED: Potassium & Sodium Phosphate PO ONE (12:34)
[2018-03-26] MEDS ORDERED: Sodium Chloride 0.9% 1,000 ML IV SCH (12:40)
[2018-03-26] MEDS ORDERED: Potassium Phosphate 15 MMOLE in Sodium Chloride 0.9% 250 ML IVPB ONE (13:30)
[2018-03-26] MEDS ORDERED: Potassium Chloride 20 mEq ER Tab PO ONE (13:30)
--- NOTE | 2018-03-26 14:08 | CP.PCM.PN ---
Subjective - Date & Time of Evaluation Date of Evaluation: 03/26/18 Time of Evaluation: 14:06 - Subjective Subjective: GI Progress Note for Dr. Vargas Patient seen and examined at bedside this morning. Patient had BM and NGT removal yesterday. Patient seen using incentive spirometer and sitting OOB to chair eating lunch. Patient denies chest pain, SOB, nausea, vomiting, diarrhea. Per RN patient's belly has been becoming less distended and more soft. Objective - Vital Signs/Intake and Output Vital Signs (last 24 hours): Temp Pulse Resp BP Pulse Ox 98.3 F 81 20 127/66 97 03/26/18 08:48 03/26/18 08:48 03/26/18 08:48 03/26/18 08:48 03/26/18 08:48 Intake and Output: 03/26/18 03/26/18 06:59 18:59 Intake Total 2270 Output Total 601 Balance 1669 - Medications Medications: Current Medications Albuterol/Ipratropium (Duoneb 3 Mg/0.5 Mg (3 Ml) Ud) 3 ml INH RQ2 PRN PRN Reason: Shortness of Breath Last Admin: 03/24/18 21:55 Dose: 3 ml Heparin Sodium (Porcine) (Heparin) 5,000 units SC Q8 [facility]OB Last Admin: 03/26/18 13:14 Dose: 5,000 units Cefepime HCl 1 gm/ Dextrose 50 mls @ 100 mls/hr IVPB Q12H [facility]; Protocol Last Admin: 03/26/18 04:59 Dose: 100 mls/hr Vancomycin HCl 1,000 mg/ (Sodium Chloride) 250 mls @ 166.6 mls/hr IVPB Q12H [facility]; Protocol Last Admin: 03/26/18 05:47 Dose: 166.6 mls/hr Potassium Phosphate 15 mmole/ (Sodium Chloride) 255 mls @ 42.5 mls/hr IVPB ONCE ONE Stop: 03/26/18 19:29 Sodium Chloride (Sodium Chloride 0.9%) 1,000 mls @ 50 mls/hr IV .Q20H [facility] Metoclopramide HCl (Reglan) 10 mg IVP Q8 [facility]OB Last Admin: 03/26/18 13:14 Dose: 10 mg Morphine Sulfate (Morphine) 2 mg IVP Q4 PRN PRN Reason: Pain, moderate (4-7) Ondansetron HCl (Zofran Inj) 4 mg IVP Q4 PRN PRN Reason: Nausea/Vomiting Last Admin: 03/23/18 02:07 Dose: 4 mg Pantoprazole Sodium (Protonix Inj) 40 mg IVP DAILY [facility]OB Last Admin: 03/26/18 13:12 Dose: 40 mg - Labs Labs: 03/26/18 07:26 03/26/18 07:26 - Constitutional Appears: Well, Non-toxic - Head Exam Head Exam: ATRAUMATIC, NORMAL INSPECTION - Eye Exam Eye Exam: EOMI, Normal appearance - Neck Exam Neck Exam: Normal Inspection - Respiratory Exam Respiratory Exam: NORMAL BREATHING PATTERN - GI/Abdominal Exam GI & Abdominal Exam: Distended, Soft, Normal Bowel Sounds. absent: Firm, Guarding, Tenderness Additional comments: surgical dressing midline c/d/i - Neurological Exam Neurological Exam: Alert, Awake - Psychiatric Exam Psychiatric exam: Normal Affect, Normal Mood - Skin Skin Exam: Dry, Intact, Warm Additional comments: scattered spots of hyperpigmentation throughout body and face Assessment and Plan - Assessment and Plan (Free Text) Assessment: 82 y/o [place] male with PMHx of HTN and prostate CA s/p laparascopic to open appy is POD6. acute appendicitis - resolved -s/p laparascopic to open appy on 2 - POD6 -c/w liquid diet and advance diet as tolerated per general surgery -OOB to chair -PT/OT -replete lytes as needed -suggest peripheral ailimentation nutrients 50 cc/h x 1-2 days then reevaluate post op ileus -CATP 03/23: surgical yessi, dilated fluid andgas filled small bowel - SBO vs. ileus -03/24 CTA chest PE - neg for PE, but found severe GERD, ileus, and multifocal PNA -reglan 10 mg q8h -dulcolax PRN - had one dose 03/25 and reports BM -monitor bowel function and abdominal exam PNA -continue to encourage IS -cefepime 1g q12h started 03/24 -vanco 1g q12 started 03/24 case d/w Dr. Sam Coto PGY1
--- NOTE | 2018-03-27 06:16 | PN ---
DATE: 03/26/2018 The patient feeling better today. Had bowel movement. Placed on bed rest, antibiotics.. Madonna Torres MD
[2018-03-27 07:47] LABS: BASO % 0.3 % (0.0-2.0); EOS % 0.4 % (0.0-4.0); HEMOGLOBIN 10.8 g/dL (12.0-18.0); LYMPH # 1.3 K/uL (1.0-4.3); MEAN CELL VOLUME 83.8 fL (80.0-94.0); MEAN CORPUSCULAR HEMOGLOBIN 28.4 pg (27.0-31.0); MEAN CORPUSCULAR HGB CONC 33.9 g/dL (33.0-37.0); MEAN PLATELET VOLUME 8.1 fL (7.2-11.7); MONO # 1.3 K/uL (0.0-0.8); MONO % 13.5 % (0.0-10.0); NEUT % 72.8 % (50.0-75.0); RBC 3.79 Mil/uL (4.40-5.90); RED CELL DISTRIBUTION WIDTH 14.7 % (11.5-14.5); WHITE BLOOD COUNT 9.6 K/uL (4.8-10.8)
[2018-03-27 08:12] LABS: ALB/GLOB RATIO 1.3 (1.0-2.1); ALBUMIN 2.9 g/dL (3.5-5.0); ALT/SGPT 17 U/L (21-72); AST/SGOT 22 U/L (17-59); BLOOD UREA NITROGEN 17 mg/dL (9-20); CALCIUM 7.3 mg/dl (8.6-10.4); GFR NON-AFRICAN AMERICAN > 60
--- NOTE | 2018-03-27 08:40 | CP.PCM.PN ---
Subjective - Date & Time of Evaluation Date of Evaluation: 03/27/18 Time of Evaluation: 07:00 - Subjective Subjective: GENERAL SURGERY PROGRESS NOTE FOR DR. MALIN Patient seen and examined at bedside. Pt reports flatus but no more BM. Pt tolerating full liquid diet. Denies nausea or vomiting or abdominal pain. Pt reports that he did not walk yesterday. Per PT notes, has not had PT since 03/24. Objective - Vital Signs/Intake and Output Vital Signs (last 24 hours): Temp Pulse Resp BP Pulse Ox 97.7 F 81 20 157/88 H 95 03/27/18 07:00 03/27/18 07:00 03/27/18 07:00 03/27/18 07:00 03/27/18 07:00 Intake and Output: 03/27/18 03/27/18 06:59 18:59 Intake Total 300 Output Total 300 Balance 0 - Medications Medications: Current Medications Albuterol/Ipratropium (Duoneb 3 Mg/0.5 Mg (3 Ml) Ud) 3 ml INH RQ2 PRN PRN Reason: Shortness of Breath Last Admin: 03/24/18 21:55 Dose: 3 ml Heparin Sodium (Porcine) (Heparin) 5,000 units SC Q8 [facility]OB Last Admin: 03/27/18 05:51 Dose: 5,000 units Cefepime HCl 1 gm/ Dextrose 50 mls @ 100 mls/hr IVPB Q12H [facility]; Protocol Last Admin: 03/27/18 05:03 Dose: 100 mls/hr Vancomycin HCl 1,000 mg/ (Sodium Chloride) 250 mls @ 166.6 mls/hr IVPB Q12H [facility]; Protocol Last Admin: 03/27/18 05:52 Dose: 166.6 mls/hr Sodium Chloride (Sodium Chloride 0.9%) 1,000 mls @ 50 mls/hr IV .Q20H [facility]OB Metoclopramide HCl (Reglan) 10 mg IVP Q8 [facility]OB Last Admin: 03/27/18 05:51 Dose: 10 mg Morphine Sulfate (Morphine) 2 mg IVP Q4 PRN PRN Reason: Pain, moderate (4-7) Ondansetron HCl (Zofran Inj) 4 mg IVP Q4 PRN PRN Reason: Nausea/Vomiting Last Admin: 03/23/18 02:07 Dose: 4 mg Pantoprazole Sodium (Protonix Inj) 40 mg IVP DAILY BOB Last Admin: 03/26/18 13:12 Dose: 40 mg - Labs Labs: 03/27/18 07:41 03/27/18 07:41 - Constitutional Appears: Non-toxic, No Acute Distress - Head Exam Head Exam: ATRAUMATIC, NORMAL INSPECTION - Eye Exam Eye Exam: EOMI, Normal appearance - Respiratory Exam Respiratory Exam: NORMAL BREATHING PATTERN. absent: Respiratory Distress - Cardiovascular Exam Cardiovascular Exam: +S1, +S2 - GI/Abdominal Exam GI & Abdominal Exam: Distended (more than yesterday), Soft. absent: Firm, Guarding, Rigid, Tenderness, Rebound Additional comments: Dressing removed, yessi in place over midline incision - Neurological Exam Neurological Exam: Alert, Awake - Psychiatric Exam Psychiatric exam: Normal Affect, Normal Mood - Skin Skin Exam: Dry, Normal Color, Warm Assessment and Plan - Assessment and Plan (Free Text) Assessment: 82yo M with PMHx of HTN, hyperlipidemia, prostate cancer s/p Laparoscopic converted to open appendectomy POD#7 with post op ileus and pneumonia Blood & urine cx negative - Hypokalemia and hypophosphatemia replaced with IV Phos, PO K and Neutra phos - Pt tolerating full liquids but more distended today - Will DC IV fluids - Added Ensure BID supplements - Continue Abx for pneumonia, on cefepime & vanco since 03/24, day #3 - Encourage IS and ambulation - Continue PT, called today to request PT to help pt ambulate today - DVT PPx: heparin - Discussed plan with Dr. Braden Mims PGY-4
[2018-03-27] MEDS ORDERED: Potassium & Sodium Phosphate PO SCH (10:00)
[2018-03-27] MEDS ORDERED: Potassium Chloride 20 mEq ER Tab PO ONE ×2 (10:00→13:00)
[2018-03-27] MEDS ORDERED: Potassium Phosphate 15 MMOLE in Sodium Chloride 0.9% 250 ML IVPB ONE (10:00)
--- NOTE | 2018-03-27 11:19 | CP.PCM.PN ---
Subjective - Date & Time of Evaluation Date of Evaluation: 03/27/18 Time of Evaluation: 11:15 - Subjective Subjective: GI Progress Note with Dr. Vargas Patient seen this morning at bedside eating breakfast. Patient tolerating liquid diet. Patient also states he will be walking after breakfast and that he is doing "50/50"; doing okay. He is looking forward to seeing Dr. Vargas this afternoon. Per RN the PPN order that Dr. Vargas requested cannot be completed until today at [address] Vargas would like 3 days of it despite patient eating PO and despite knowing that patient might be discharged beforehand. Objective - Vital Signs/Intake and Output Vital Signs (last 24 hours): Temp Pulse Resp BP Pulse Ox 97.7 F 81 20 157/88 H 95 03/27/18 07:00 03/27/18 07:00 03/27/18 07:00 03/27/18 07:00 03/27/18 07:00 Intake and Output: 03/27/18 03/27/18 06:59 18:59 Intake Total 300 Output Total 300 Balance 0 - Medications Medications: Current Medications Albuterol/Ipratropium (Duoneb 3 Mg/0.5 Mg (3 Ml) Ud) 3 ml INH RQ2 PRN PRN Reason: Shortness of Breath Last Admin: 03/24/18 21:55 Dose: 3 ml Heparin Sodium (Porcine) (Heparin) 5,000 units SC Q8 [facility]OB Last Admin: 03/27/18 05:51 Dose: 5,000 units Cefepime HCl 1 gm/ Dextrose 50 mls @ 100 mls/hr IVPB Q12H [facility]; Protocol Last Admin: 03/27/18 05:03 Dose: 100 mls/hr Vancomycin HCl 1,000 mg/ (Sodium Chloride) 250 mls @ 166.6 mls/hr IVPB Q12H [facility]; Protocol Last Admin: 03/27/18 05:52 Dose: 166.6 mls/hr Potassium Phosphate 15 mmole/ (Sodium Chloride) 255 mls @ 42.5 mls/hr IVPB ONCE ONE Stop: 03/27/18 15:59 Last Admin: 03/27/18 09:41 Dose: 42.5 mls/hr Multivitamins/Vitamin C 10 ml/Chromium/Copper/Manganese/Zinc 1 ml/ Amino Acids 1,011 mls @ 42 mls/hr IV .Q24H ONE Stop: 03/28/18 17:59 Fat Emulsion Intravenous (Intralipid 20%) 500 mls @ 42 mls/hr IV Q0D [facility] Metoclopramide HCl (Reglan) 10 mg IVP Q8 [facility] Last Admin: 03/27/18 05:51 Dose: 10 mg Morphine Sulfate (Morphine) 2 mg IVP Q4 PRN PRN Reason: Pain, moderate (4-7) Ondansetron HCl (Zofran Inj) 4 mg IVP Q4 PRN PRN Reason: Nausea/Vomiting Last Admin: 03/23/18 02:07 Dose: 4 mg Pantoprazole Sodium (Protonix Inj) 40 mg IVP DAILY [facility] Last Admin: 03/27/18 09:23 Dose: 40 mg Potassium Phos/Sodium Phos (Neutra-Phos) 1 pkt PO DAILY [facility] Stop: 03/27/18 16:01 Last Admin: 03/27/18 09:22 Dose: 1 pkt - Labs Labs: 03/27/18 07:41 03/27/18 07:41 - Constitutional Appears: Well, Non-toxic - Head Exam Head Exam: ATRAUMATIC, NORMAL INSPECTION - Neck Exam Neck Exam: Normal Inspection - Respiratory Exam Respiratory Exam: NORMAL BREATHING PATTERN - GI/Abdominal Exam GI & Abdominal Exam: Distended, Normal Bowel Sounds. absent: Guarding, Tenderness - Neurological Exam Neurological Exam: Alert, Awake - Psychiatric Exam Psychiatric exam: Normal Affect, Normal Mood - Skin Skin Exam: Dry, Intact, Normal Color, Warm Assessment and Plan - Assessment and Plan (Free Text) Assessment: 82 y/o Spanish male with PMHx of HTN and prostate CA s/p laparascopic to open appy is POD7. acute appendicitis - resolved -s/p laparascopic to open appy on 2/ - POD6 -c/w liquid diet and advance diet as tolerated per general surgery -replete lytes as needed -suggest peripheral ailimentation nutrients 50 cc/h x 3 days starting today (or up until discharge if patient discharged sooner per primary team) -OOB to chair -PT/OT post op ileus -CTAP 2/4: surgical yessi, dilated fluid andgas filled small bowel - SBO vs. ileus -5 CTA chest PE - neg for PE, but found severe GERD, ileus, and multifocal PNA -reglan 10 mg q8h -dulcolax PRN -monitor bowel function and abdominal exam PNA -bcx and ucx negative, patient w/o leukocytosis -continue to encourage IS -cefepime 1g q12h started 03/24 -vanco 1g q12 started 03/24 case d/w Dr. Sam Coto PGY1
[2018-03-27] MEDS ORDERED: Fat Emulsion 20% IV 500 ML IV SCH (18:00)
[2018-03-27] MEDS ORDERED: PPN # 1 IV ONE (18:00)
[2018-03-28 08:06] LABS: BASO # 0.1 K/uL (0.0-0.2); BASO % 0.5 % (0.0-2.0); EOS # 0.1 K/uL (0.0-0.7); HEMOGLOBIN 10.5 g/dL (12.0-18.0); LYMPH # 2.1 K/uL (1.0-4.3); LYMPH % 13.8 % (20.0-40.0); MEAN CELL VOLUME 84.4 fL (80.0-94.0); MEAN CORPUSCULAR HEMOGLOBIN 28.8 pg (27.0-31.0); MEAN CORPUSCULAR HGB CONC 34.2 g/dL (33.0-37.0); MEAN PLATELET VOLUME 8.5 fL (7.2-11.7); MONO # 1.5 K/uL (0.0-0.8); MONO % 9.8 % (0.0-10.0); NEUT # 11.5 K/uL (1.8-7.0); NEUT % 74.9 % (50.0-75.0); RBC 3.65 Mil/uL (4.40-5.90); RED CELL DISTRIBUTION WIDTH 15.1 % (11.5-14.5); WHITE BLOOD COUNT 15.4 K/uL (4.8-10.8)
[2018-03-28 08:35] LABS: ALB/GLOB RATIO 1.2 (1.0-2.1); ALBUMIN 2.8 g/dL (3.5-5.0); ALT/SGPT 20 U/L (21-72); AST/SGOT 29 U/L (17-59); BLOOD UREA NITROGEN 14 mg/dL (9-20); CALCIUM 7.2 mg/dl (8.6-10.4); GFR NON-AFRICAN AMERICAN > 60
--- NOTE | 2018-03-28 11:46 | CP.PCM.PN ---
Subjective - Date & Time of Evaluation Date of Evaluation: 03/28/18 Time of Evaluation: 11:43 - Subjective Subjective: overall much better bm + adjust meds rehab Objective - Vital Signs/Intake and Output Vital Signs (last 24 hours): Temp Pulse Resp BP Pulse Ox 98.1 F 76 20 126/73 96 03/28/18 09:22 03/28/18 09:22 03/28/18 09:22 03/28/18 09:22 03/28/18 09:22 Intake and Output: 03/28/18 03/28/18 06:59 18:59 Intake Total 1824 Balance 1824 - Medications Medications: Current Medications Albuterol/Ipratropium (Duoneb 3 Mg/0.5 Mg (3 Ml) Ud) 3 ml INH RQ2 PRN PRN Reason: Shortness of Breath Last Admin: 03/24/18 21:55 Dose: 3 ml Heparin Sodium (Porcine) (Heparin) 5,000 units SC Q8 [facility] Last Admin: 03/28/18 05:59 Dose: 5,000 units Cefepime HCl 1 gm/ Dextrose 50 mls @ 100 mls/hr IVPB Q12H [facility]; Protocol Last Admin: 03/28/18 05:08 Dose: 100 mls/hr Vancomycin HCl 1,000 mg/ (Sodium Chloride) 250 mls @ 166.6 mls/hr IVPB Q12H [facility]; Protocol Last Admin: 03/28/18 05:59 Dose: 166.6 mls/hr Fat Emulsion Intravenous (Intralipid 20%) 500 mls @ 42 mls/hr IV Q0D [facility] Last Admin: 03/27/18 18:31 Dose: 42 mls/hr Multivitamins/Vitamin C 10 ml/Chromium/Copper/Manganese/Zinc 1 ml/ Amino Acids 1,011 mls @ 42 mls/hr IV .Q24H [facility] Stop: 03/29/18 18:01 Metoclopramide HCl (Reglan) 10 mg IVP Q8 [facility] Last Admin: 03/28/18 05:59 Dose: 10 mg Ondansetron HCl (Zofran Inj) 4 mg IVP Q4 PRN PRN Reason: Nausea/Vomiting Last Admin: 03/23/18 02:07 Dose: 4 mg Pantoprazole Sodium (Protonix Inj) 40 mg IVP DAILY [facility] Last Admin: 03/28/18 09:19 Dose: 40 mg - Labs Labs: 03/28/18 07:55 03/28/18 07:55
--- NOTE | 2018-03-28 12:35 | RAD ---
Date of service: 03/28/2018 HISTORY: left lung infiltrate COMPARISON: Chest radiographs 03/24/2018 3:19 p.m.. FINDINGS: LUNGS: Diminishing lateral infiltrate or atelectasis mid left lung. Improved inspiratory effort throughout. Underlying chronic interstitial pulmonary changes in question. Linear atelectasis or fibrosis superior right lung zone. PLEURA: No significant pleural effusion identified, no pneumothorax apparent. CARDIOVASCULAR: No aortic atherosclerotic calcification present. Normal cardiac size. No pulmonary vascular congestion. OSSEOUS STRUCTURES: No significant abnormalities. VISUALIZED UPPER ABDOMEN: Normal. OTHER FINDINGS: None. IMPRESSION: Improved aeration mid to inferior left lung zone where patchy atelectasis or infiltrate previously shown. Underlying limited chronic interstitial pulmonary disease is in question. No pulmonary vascular congestion or pleural effusion bilaterally.
--- NOTE | 2018-03-28 14:17 | PN ---
DATE: 03/28/2018 LOCATION: 671, bed A. SUBJECTIVE: This is an 82-year-old male seen and examined early in rounds appeared to be awake, alert, and oriented, with reported moderate amount of soft bowel movement, passing gas and ambulating. No chest pain, palpitation. No reported abdominal pain, significant shortness of breath, or evidence of active GI bleeding. The entire chart is reviewed including but not limited to the most recent lab and radiology study results, current and previous medications list; and today's lab showed leukocytosis of 15.4, hemoglobin 10.5, hematocrit 30.8. The patient on hyperalimentation, put on heparin as well as lipids intake. PHYSICAL EXAMINATION: GENERAL: An 82-year-old male. VITAL SIGNS: Afebrile with pulse of 78, respiratory rate 20 to 22, blood pressure 142/70. HEENT: Showed pale, dry, oral mucous membrane. Nonicteric sclerae. LUNGS: Few scattered crepitations. Decreased air entry at bases. HEART: Positive S1 and S2. ABDOMEN: Soft. Mild generalized tenderness. No mass or organomegaly. No rebound tenderness or guarding. Abdominal distention is noticed. EXTREMITIES: Without significant clubbing, cyanosis, or edema. No reported new neurological deficit, sensory or motor. IMPRESSION: 1. Status post appendectomy was paralytic earlier. improving clinically, resolved. 2. Leukocytosis of unclear etiology. 3. Malnutrition with hypoalbuminemia, hypoproteinemia. 4. Anemia most likely secondary to above with mild electrolyte imbalance. 5. Soft fecal material, to rule out possible pseudomembranous colitis with leukocytosis. SUGGESTIONS: 1. Agree with your plan. 2. Complete stool workup. 3. Advance diet. 4. If it is agreeable to the operating room surgical technologist, repeat CAT scan of the abdomen and pelvis. 5. Discharge home when being advised. 6. Continue current antibiotics including vancomycin. Further recommendation to follow. Mary Tesfaye MD
[2018-03-28] MEDS: Potassium Chloride 20 mEq/15 ml LIQ UD PO SCH ×2 (14:27→19:42)
[2018-03-28] MEDS: PPN # 2 IV SCH (18:02)
[2018-03-28] MEDS ORDERED: DiphenhydrAMINE 12.5 mg/5 ml LIQ UD (5 ml) PO ONE (21:00)
[2018-03-28] MEDS ORDERED: Potassium Phosphate 15 MMOLE in Sodium Chloride 0.9% 250 ML IVPB ONE (21:30)
[2018-03-29 08:06] LABS: BASO # 0.1 K/uL (0.0-0.2); BASO % 0.5 % (0.0-2.0); EOS # 0.2 K/uL (0.0-0.7); EOS % 1.2 % (0.0-4.0); LYMPH # 1.5 K/uL (1.0-4.3); LYMPH % 11.2 % (20.0-40.0); MEAN CELL VOLUME 83.1 fL (80.0-94.0); MEAN CORPUSCULAR HEMOGLOBIN 28.3 pg (27.0-31.0); MEAN PLATELET VOLUME 8.7 fL (7.2-11.7); MONO # 1.3 K/uL (0.0-0.8); MONO % 9.5 % (0.0-10.0); NEUT # 10.7 K/uL (1.8-7.0); NEUT % 77.6 % (50.0-75.0); RBC 3.53 Mil/uL (4.40-5.90); RED CELL DISTRIBUTION WIDTH 15.3 % (11.5-14.5); WHITE BLOOD COUNT 13.8 K/uL (4.8-10.8)
[2018-03-29 08:19] LABS: ALB/GLOB RATIO 1.1 (1.0-2.1); ALBUMIN 2.6 g/dL (3.5-5.0); ALT/SGPT 21 U/L (21-72); AST/SGOT 37 U/L (17-59); BLOOD UREA NITROGEN 17 mg/dL (9-20); CALCIUM 7.3 mg/dl (8.6-10.4); GFR NON-AFRICAN AMERICAN > 60
[2018-03-29] MEDS ORDERED: Magnesium Sulfate 4 gm/100 ml 4 GM/100 ML BAG IVPB ONE (08:41)
--- NOTE | 2018-03-29 08:54 | CP.PCM.PN ---
Subjective - Date & Time of Evaluation Date of Evaluation: 03/29/18 Time of Evaluation: 07:00 - Subjective Subjective: SURGERY PROGRESS NOTE FOR DR. MALIN Patient seen and examined at bedside. States had some nausea causing him to spit up and was given Zofran. Denies abdominal pain. Had some diarrhea yesterday. Admits to passing flatus. Objective - Vital Signs/Intake and Output Vital Signs (last 24 hours): Temp Pulse Resp BP Pulse Ox 98.6 F 76 20 139/76 98 03/28/18 23:55 03/28/18 23:55 03/28/18 23:55 03/28/18 23:55 03/28/18 23:55 Intake and Output: 03/29/18 03/29/18 06:59 18:59 Output Total 250 Balance -250 - Medications Medications: Current Medications Albuterol/Ipratropium (Duoneb 3 Mg/0.5 Mg (3 Ml) Ud) 3 ml INH RQ2 PRN PRN Reason: Shortness of Breath Last Admin: 03/24/18 21:55 Dose: 3 ml Heparin Sodium (Porcine) (Heparin) 5,000 units SC Q8 [facility] Last Admin: 03/29/18 05:42 Dose: 5,000 units Cefepime HCl 1 gm/ Dextrose 50 mls @ 100 mls/hr IVPB Q12H [facility]; Protocol Last Admin: 03/29/18 04:56 Dose: 100 mls/hr Vancomycin HCl 1,000 mg/ (Sodium Chloride) 250 mls @ 166.6 mls/hr IVPB Q12H [facility]; Protocol Last Admin: 03/29/18 05:41 Dose: 166.6 mls/hr Multivitamins/Vitamin C 10 ml/Chromium/Copper/Manganese/Zinc 1 ml/ Amino Acids 1,011 mls @ 42 mls/hr IV .Q24H [facility] Stop: 03/29/18 18:01 Last Admin: 03/28/18 18:02 Dose: 42 mls/hr Fat Emulsion Intravenous (Intralipid 20%) 500 mls @ 42 mls/hr IV QOD@1800 [facility] Magnesium Sulfate (Magnesium Sulfate 4 Gm/100 Ml H2o) 4 gm in 100 mls @ 50 mls/hr IVPB ONCE ONE Stop: 03/29/18 10:40 Potassium Chloride (Potassium Chloride 10 Meq/100 Ml) 10 meq in 100 mls @ 100 mls/hr IVPB Q1H [facility] Stop: 03/29/18 10:59 Ondansetron HCl (Zofran Inj) 4 mg IVP Q4 PRN PRN Reason: Nausea/Vomiting Last Admin: 03/29/18 02:54 Dose: 4 mg Pantoprazole Sodium (Protonix Inj) 40 mg IVP DAILY [facility] Last Admin: 03/28/18 09:19 Dose: 40 mg Potassium Chloride (Potassium Chloride Oral Soln) 20 meq PO TID [facility] Last Admin: 03/28/18 19:42 Dose: 20 meq - Labs Labs: 03/29/18 08:00 03/29/18 08:00 - Constitutional Appears: Non-toxic, No Acute Distress - Respiratory Exam Respiratory Exam: NORMAL BREATHING PATTERN. absent: Respiratory Distress - Cardiovascular Exam Cardiovascular Exam: +S1, +S2 - GI/Abdominal Exam GI & Abdominal Exam: Distended (but significantly improved from yesterday), Soft. absent: Firm, Guarding, Rigid, Tenderness - Neurological Exam Neurological Exam: Alert, Awake - Psychiatric Exam Psychiatric exam: Normal Affect, Normal Mood - Skin Skin Exam: Normal Color, Warm Assessment and Plan - Assessment and Plan (Free Text) Assessment: 82yo M with PMHx of HTN, hyperlipidemia, prostate cancer s/p Laparoscopic converted to open appendectomy POD#9 with post op ileus, pneumonia, and refractory hypokalemia Blood & urine cx negative - Hypokalemia w/ low magnesium replaced with PO & IV potassium, IV magnesium - Pt tolerating regular diet + Ensure supplements - Continue Abx for pneumonia, on cefepime & vanco since 03/24, day #6 - Encourage IS and ambulation - Continue PT - DVT PPx: heparin - Discussed plan with Dr. Braden Mims PGY-4
[2018-03-29] MEDS: Potassium Chloride 20 mEq/15 ml LIQ UD PO SCH ×3 (09:18→17:37)
[2018-03-29] MEDS: Magnesium Sulfate 1 gm in D5W 1 GM/100 ML BAG IVPB SCH ×2 (09:19→10:30)
[2018-03-29] MEDS: PPN # 2 IV SCH (17:44)
[2018-03-29] MEDS ORDERED: Fat Emulsion 20% IV 500 ML IV SCH (18:00)
[2018-03-29] MEDS ORDERED: PPN IV ONE (18:00)
[2018-03-29 20:47] LABS: BLOOD UREA NITROGEN 18 mg/dL (9-20); CALCIUM 7.5 mg/dl (8.6-10.4); GFR NON-AFRICAN AMERICAN > 60
[2018-03-29] MEDS ORDERED: Magnesium Oxide 400 mg Tab UD PO ONE (20:56)
--- NOTE | 2018-03-30 07:26 | CP.PCM.PN ---
Subjective - Date & Time of Evaluation Date of Evaluation: 03/30/18 Time of Evaluation: 07:26 - Subjective Subjective: Dr. Torres's Service: Progress Note 82 year old male with a initially presented after being admitted for an appendectomy. Subsequently after the patient developed an ileus. Patient reported diffuse abdominal pain with no alleviating or modifying factors. Patient upon initial symptoms rated the pain an 8/10 in severity. Patient seen and examined at bedside. Per nursing, no acute events occurred overnight. Patient denies any chest pain, shortness of breath, fevers, chills, nausea, vomiting, syncopal episodes, or any other complaints. PMH: hypertension, hyperlipidemia, prostate cancer Surgical history: Allergies: Denies Objective - Vital Signs/Intake and Output Vital Signs (last 24 hours): Temp Pulse Resp BP Pulse Ox 97.3 F L 84 20 149/77 95 03/29/18 23:40 03/29/18 23:40 03/29/18 23:40 03/29/18 23:40 03/29/18 23:40 Intake and Output: 03/30/18 03/30/18 06:59 18:59 Intake Total 800 Balance 800 - Medications Medications: Current Medications Heparin Sodium (Porcine) (Heparin) 5,000 units SC Q8 [facility] Last Admin: 03/30/18 05:40 Dose: 5,000 units Cefepime HCl 1 gm/ Dextrose 50 mls @ 100 mls/hr IVPB Q12H [facility]; Protocol Last Admin: 03/30/18 04:49 Dose: 100 mls/hr Vancomycin HCl 1,000 mg/ (Sodium Chloride) 250 mls @ 166.6 mls/hr IVPB Q12H [facility]; Protocol Last Admin: 03/30/18 05:40 Dose: 166.6 mls/hr Fat Emulsion Intravenous (Intralipid 20%) 500 mls @ 42 mls/hr IV QOD@1800 [facility] Last Admin: 03/29/18 17:40 Dose: 42 mls/hr Multivitamins/Vitamin C 10 ml/Chromium/Copper/Manganese/Zinc 1 ml/ Amino Acids 1,011 mls @ 42 mls/hr IV .Q24H [facility] Stop: 03/30/18 17:59 Last Admin: 03/29/18 17:38 Dose: 42 mls/hr Ondansetron HCl (Zofran Inj) 4 mg IVP Q4 PRN PRN Reason: Nausea/Vomiting Last Admin: 03/30/18 04:53 Dose: 4 mg Pantoprazole Sodium (Protonix Inj) 40 mg IVP DAILY [facility] Last Admin: 03/29/18 09:18 Dose: 40 mg Potassium Chloride (Potassium Chloride Oral Soln) 20 meq PO TID [facility] Last Admin: 03/29/18 17:37 Dose: 20 meq - Labs Labs: 03/29/18 08:00 03/29/18 20:22 - Head Exam Head Exam: ATRAUMATIC, NORMAL INSPECTION - Eye Exam Eye Exam: EOMI, Normal appearance, PERRL Pupil Exam: NORMAL ACCOMODATION - ENT Exam ENT Exam: Mucous Membranes Moist, Normal Oropharynx - Respiratory Exam Respiratory Exam: Clear to Ausculation Bilateral, NORMAL BREATHING PATTERN. absent: Prolonged Expiratory Phase, Respiratory Distress - Cardiovascular Exam Cardiovascular Exam: REGULAR RHYTHM, +S1, +S2 - GI/Abdominal Exam GI & Abdominal Exam: Soft, Normal Bowel Sounds. absent: Hyperactive Bowel Sounds - Extremities Exam Extremities Exam: Full ROM. absent: Pedal Edema - Back Exam Back Exam: NORMAL INSPECTION. absent: CVA tenderness (R), paraspinal tenderness - Neurological Exam Neurological Exam: Awake, Oriented x3 - Psychiatric Exam Psychiatric exam: Normal Affect, Normal Mood - Skin Skin Exam: Dry, Intact, Normal Color Assessment and Plan - Assessment and Plan (Free Text) Assessment: 1. Appendectomy w/ postop ileus -POD#10 Medications: Plan: 1. Appendectomy w/ postop ileus -POD#10 -OOB to chair -PT/OT -Surgery following. -GI Dr. Vargas consulted. Help appreciated. Abdomen/pelvis ct: Midline abdominal surgical yessi. Fluid-filled distended stomach. Dilated fluid and gas filled small bowel measuring up to 4.9 cm in diameter; appearance concerning for small bowel obstruction versus ileus. Small subcapsular hepatic fluid versus small ascites. Gas within the urinary bladder may be secondary to recent instrumentation. Correlate clinically. Infection not excluded in the proper clinical setting. Prostate radiation seeds. Bilateral lower lobe consolidations and small pleural effusions. Large amount of fluid within the included portions of the dilated esophagus consistent with gastroesophageal reflux. Abdomen xray: Most likely post op ileus Medications: Zofran 4mg IVP Q4 PRN 2.Pneumonia Blood cx, urine cx negative Chest ct: No large central or segmental pulmonary embolus identified. Small bilateral pleural effusions and associated dependent consolidations. Lingula and right upper lobe consolidations consistent with multifocal pneumonia. Large amount of fluid within the esophagus consistent with severe gastroesophageal reflux. Coarse large calcifications adjacent to the mid to distal esophagus, possibly lymph nodes. Limited visualized portions of the upper abdomen: Small perihepatic ascites. Partially imaged distended fluid-filled bowel loops; correlate clinically for ileus. Partially imaged diverticulosis. Medications: Cefepime 1gm IVPB Q12 H Vancomycin 1,000mg ivpb q12 [facility] 3.Hypokalemia -Replete as necessary Medications: Potassium Chloride 20meq PO TID [facility] ppx -Protonix -Heparin -Fat emulsion @42mls/hr iv All management per Dr. Melissa Cordova, PGY-2
[2018-03-30 07:58] LABS: BASO # 0.1 K/uL (0.0-0.2); BASO % 0.3 % (0.0-2.0); EOS # 0.3 K/uL (0.0-0.7); EOS % 1.7 % (0.0-4.0); LYMPH # 1.7 K/uL (1.0-4.3); LYMPH % 8.8 % (20.0-40.0); MEAN CELL VOLUME 83.5 fL (80.0-94.0); MEAN CORPUSCULAR HGB CONC 33.6 g/dL (33.0-37.0); MEAN PLATELET VOLUME 8.9 fL (7.2-11.7); MONO # 1.5 K/uL (0.0-0.8); MONO % 7.9 % (0.0-10.0); NEUT # 15.5 K/uL (1.8-7.0); NEUT % 81.3 % (50.0-75.0); PLATELET COUNT 269 K/uL (130-400); RBC 3.57 Mil/uL (4.40-5.90); RED CELL DISTRIBUTION WIDTH 15.1 % (11.5-14.5)
--- NOTE | 2018-03-30 08:05 | PN ---
DATE: 03/29/2018 The patient is complaining of feeling better shortness of breath. Bed rest. Supportive care. Continued treatment. Madonna Torres MD
[2018-03-30 08:15] LABS: ALB/GLOB RATIO 1.1 (1.0-2.1); ALBUMIN 2.7 g/dL (3.5-5.0); ALT/SGPT 26 U/L (21-72); AST/SGOT 38 U/L (17-59); BLOOD UREA NITROGEN 17 mg/dL (9-20); CALCIUM 7.6 mg/dl (8.6-10.4); GFR NON-AFRICAN AMERICAN > 60
[2018-03-30 08:51] LABS: REACTIVE LYMPHOCYTES 1 % (0-0); TOTAL CELLS COUNTED 100
[2018-03-30 08:53] LABS: ANISOCYTOSIS SLIGHT; BANDS 7 % (0-2); EOSINOPHIL 1 % (0-4); LYMPHOCYTE 4 % (20-40); MONOCYTE 8 % (0-10); NEUTROPHIL 79 % (50-75); PLATELET ESTIMATE NORMAL (NORMAL)
[2018-03-30 08:54] LABS: OVALOCYTES SLIGHT; POIKILOCYTOSIS SLIGHT
[2018-03-30] MEDS: Potassium Chloride 20 mEq/15 ml LIQ UD PO SCH ×3 (10:02→19:00)
[2018-03-30] MEDS ORDERED: Potassium & Sodium Phosphate PO ONE (10:30)
[2018-03-30] MEDS: Magnesium Oxide 400 mg Tab UD PO SCH (10:49)
--- NOTE | 2018-03-30 13:59 | PN ---
DATE: 03/30/2018 LOCATION: 671, bed A SUBJECTIVE: This is an 82-year-old male seen and examined in rounds without significant clinical changes or reported active bleeding, tolerating somewhat oral intake well, passing gas, with bowel movement. No reported nausea, vomiting, chest pain, palpitation, significant shortness of breath, chills or fever. The entire chart is reviewed including but not limited to most recent lab results with reported leukocytosis of 19, hemoglobin 10, hematocrit 29.8 with normal platelet count. Sodium 130, potassium 3.5. Blood glucose level 122, calcium 7.6 with phosphorus 2.3, magnesium 1.5, albumin 2.7, total protein 5.1. Most recently done chest x-ray, official report is seen with possible infiltrate at the left side. PHYSICAL EXAMINATION: GENERAL: An 82-year-old male, awake, alert and oriented. VITAL SIGNS: Temperature of 99.3, heart rate 90, respiratory 20-22, blood pressure of 138/82. HEENT: Showed pale dry oral mucous membrane. Nonicteric sclerae. LUNGS: Few scattered crepitation. Decreased air entry at bases. HEART: Positive S1 and S2 with increased rate. ABDOMEN: Soft with slight distention. No mass or organomegaly. No rebound tenderness or guarding. EXTREMITIES: Without edema, clubbing or cyanosis. No reported new neurological deficits, sensory or motor. IMPRESSION: 1. Status post appendectomy with paralytic ileus, improving clinically. 2. Pneumonia with leukocytosis. 3. Hypoalbuminemia, hypoproteinemia with malnutrition. 4. Anemia most likely secondary to above. 5. Electrolyte imbalance. 6. Rule out pseudomembranous colitis. SUGGESTIONS: 1. Continue current management. 2. Flagyl p.o. 3. Repeat CAT scan of the abdomen and pelvis. 4. No aggressive GI workup in the meantime. Further recommendation to follow. Mary Tesfaye MD
--- NOTE | 2018-03-30 15:37 | CP.PCM.PN ---
Subjective - Date & Time of Evaluation Date of Evaluation: 03/30/18 Time of Evaluation: 07:00 - Subjective Subjective: SURGERY PROGRESS NOTE FOR DR. MALIN Patient seen and examined at bedside. Pt reports that he is passing flatus and having BMs. Tolerating diet. Denies abdominal pain, nausea or vomiting. Objective - Vital Signs/Intake and Output Vital Signs (last 24 hours): Temp Pulse Resp BP Pulse Ox 99.3 F 92 H 20 135/84 93 L 03/30/18 07:35 03/30/18 07:35 03/30/18 07:35 03/30/18 07:35 03/30/18 07:35 Intake and Output: 03/30/18 03/30/18 06:59 18:59 Intake Total 800 Output Total 700 Balance 800 -700 - Medications Medications: Current Medications Heparin Sodium (Porcine) (Heparin) 5,000 units SC Q8 [facility] Last Admin: 03/30/18 13:14 Dose: 5,000 units Cefepime HCl 1 gm/ Dextrose 50 mls @ 100 mls/hr IVPB Q12H [facility]; Protocol Last Admin: 03/30/18 04:49 Dose: 100 mls/hr Vancomycin HCl 1,000 mg/ (Sodium Chloride) 250 mls @ 166.6 mls/hr IVPB Q12H [facility]; Protocol Last Admin: 03/30/18 05:40 Dose: 166.6 mls/hr Fat Emulsion Intravenous (Intralipid 20%) 500 mls @ 42 mls/hr IV QOD@1800 [facility] Last Admin: 03/29/18 17:40 Dose: 42 mls/hr Multivitamins/Vitamin C 10 ml/Chromium/Copper/Manganese/Zinc 1 ml/ Amino Acids 1,011 mls @ 42 mls/hr IV .Q24H [facility] Stop: 03/31/18 18:01 Magnesium Oxide (Mag-Ox) 400 mg PO DAILY [facility] Stop: 04/01/18 10:31 Last Admin: 03/30/18 10:49 Dose: 400 mg Ondansetron HCl (Zofran Inj) 4 mg IVP Q4 PRN PRN Reason: Nausea/Vomiting Last Admin: 03/30/18 04:53 Dose: 4 mg Pantoprazole Sodium (Protonix Inj) 40 mg IVP DAILY [facility] Last Admin: 03/30/18 10:02 Dose: 40 mg Potassium Chloride (Potassium Chloride Oral Soln) 20 meq PO TID [facility] Last Admin: 03/30/18 13:18 Dose: 20 meq - Labs Labs: 03/30/18 07:00 03/30/18 07:00 - Constitutional Appears: Non-toxic, No Acute Distress - Head Exam Head Exam: ATRAUMATIC, NORMAL INSPECTION - Eye Exam Eye Exam: EOMI, Normal appearance - Respiratory Exam Respiratory Exam: NORMAL BREATHING PATTERN. absent: Respiratory Distress - Cardiovascular Exam Cardiovascular Exam: +S1, +S2 - GI/Abdominal Exam GI & Abdominal Exam: Distended (improved), Soft. absent: Firm, Guarding, Rigid, Tenderness, Rebound Additional comments: Eleanor in place over lower midline incision - Neurological Exam Neurological Exam: Alert, Awake - Psychiatric Exam Psychiatric exam: Normal Affect, Normal Mood - Skin Skin Exam: Dry, Warm Assessment and Plan - Assessment and Plan (Free Text) Assessment: 82yo M with PMHx of HTN, hyperlipidemia, prostate cancer s/p Laparoscopic converted to open appendectomy POD#10 with post op ileus, pneumonia, hypokalemia - Mg, Phos, and K all replaced - Pt tolerating regular diet + Ensure supplements - Continue Abx for pneumonia, on cefepime & vanco since 2, day #7 - Encourage IS and ambulation - Continue PT - DVT PPx: heparin - Possible DC to rehab - Discussed plan with Dr. Braden Mims PGY-4
[2018-03-30] MEDS: PPN IV SCH (18:43)
[2018-03-31] MEDS ORDERED: [UNRECOGNIZED DRUG - OTHER] IVPB SCH (06:00)
[2018-03-31] MEDS ORDERED: VANCOMYCIN IVPB SCH (06:00)
[2018-03-31 08:53] VITALS: RESP 20
[2018-03-31] MEDS: Magnesium Oxide 400 mg Tab UD PO SCH (09:18)
[2018-03-31] MEDS: Potassium Chloride 20 mEq/15 ml LIQ UD PO SCH ×3 (09:18→17:03)
[2018-03-31] MEDS ORDERED: Iohexol 240 (50 ml) PO ONE (11:00)
[2018-03-31 11:17] LABS: BASO # 0.1 K/uL (0.0-0.2); BASO % 0.4 % (0.0-2.0); EOS # 0.3 K/uL (0.0-0.7); EOS % 2.1 % (0.0-4.0); HEMOGLOBIN 10.5 g/dL (12.0-18.0); LYMPH # 1.5 K/uL (1.0-4.3); LYMPH % 9.7 % (20.0-40.0); MEAN CELL VOLUME 83.3 fL (80.0-94.0); MEAN CORPUSCULAR HEMOGLOBIN 27.9 pg (27.0-31.0); MEAN CORPUSCULAR HGB CONC 33.5 g/dL (33.0-37.0); MEAN PLATELET VOLUME 9.1 fL (7.2-11.7); MONO # 1.3 K/uL (0.0-0.8); MONO % 8.4 % (0.0-10.0); NEUT # 12.2 K/uL (1.8-7.0); NEUT % 79.4 % (50.0-75.0); PLATELET COUNT 316 K/uL (130-400); RBC 3.77 Mil/uL (4.40-5.90); RED CELL DISTRIBUTION WIDTH 15.2 % (11.5-14.5); WHITE BLOOD COUNT 15.3 K/uL (4.8-10.8)
[2018-03-31 11:37] LABS: ALB/GLOB RATIO 1.1 (1.0-2.1); ALBUMIN 2.9 g/dL (3.5-5.0); ALT/SGPT 24 U/L (21-72); AST/SGOT 48 U/L (17-59); BLOOD UREA NITROGEN 23 mg/dL (9-20); CALCIUM 7.8 mg/dl (8.6-10.4); GFR NON-AFRICAN AMERICAN > 60
[2018-03-31 11:47] LABS: BANDS 1 % (0-2); EOSINOPHIL 2 % (0-4); LYMPHOCYTE 10 % (20-40); MONOCYTE 8 % (0-10); NEUTROPHIL 79 % (50-75); TOTAL CELLS COUNTED 100
[2018-03-31 11:48] LABS: ANISOCYTOSIS SLIGHT; BURR CELLS SLIGHT; OVALOCYTES SLIGHT; PLATELET ESTIMATE NORMAL (NORMAL); POIKILOCYTOSIS SLIGHT
[2018-03-31] MEDS ORDERED: Iodixanol 320 MG/ML 100 ML BOTTLE IV ONE (13:21)
--- NOTE | 2018-03-31 14:30 | CP.PCM.PN ---
Subjective - Date & Time of Evaluation Date of Evaluation: 03/31/18 Time of Evaluation: 14:30 - Subjective Subjective: Progress note. Attending: Dr. Torres. Pt seen and examined at bedside. No acute distress. No events overnight. No fevers, chills, vomiting, diarrhea. No complaints today, eating well. Objective - Vital Signs/Intake and Output Vital Signs (last 24 hours): Temp Pulse Resp BP Pulse Ox 98.6 F 80 20 134/75 97 03/31/18 07:30 03/31/18 07:30 03/31/18 07:30 03/31/18 07:30 03/31/18 07:30 Intake and Output: 03/31/18 03/31/18 06:59 18:59 Intake Total 1332 Output Total 750 Balance 582 - Medications Medications: Current Medications Heparin Sodium (Porcine) (Heparin) 5,000 units SC Q8 [facility] Last Admin: 03/31/18 13:13 Dose: 5,000 units Cefepime HCl 1 gm/ Dextrose 50 mls @ 100 mls/hr IVPB Q12H [facility]; Protocol Last Admin: 03/31/18 04:58 Dose: 100 mls/hr Multivitamins/Vitamin C 10 ml/Chromium/Copper/Manganese/Zinc 1 ml/ Amino Acids 1,011 mls @ 42 mls/hr IV .Q24H [facility] Stop: 03/31/18 18:01 Last Admin: 03/30/18 18:43 Dose: 42 mls/hr Vancomycin HCl 750 mg/ (Vancomycin HCl) 150 mls @ 133 mls/hr IVPB Q12H [facility]; Protocol Last Admin: 03/31/18 05:33 Dose: 133 mls/hr Multivitamins/Vitamin C 10 ml/Chromium/Copper/Manganese/Zinc 1 ml/ Amino Acids 1,011 mls @ 42 mls/hr IV .Q24H [facility] Stop: 04/01/18 17:59 Fat Emulsion Intravenous (Intralipid 20%) 500 mls @ 42 mls/hr IV QOD@1800 [facility] Stop: 04/03/18 18:01 Magnesium Oxide (Mag-Ox) 400 mg PO DAILY [facility] Stop: 04/01/18 10:31 Last Admin: 03/31/18 09:18 Dose: 400 mg Ondansetron HCl (Zofran Inj) 4 mg IVP Q4 PRN PRN Reason: Nausea/Vomiting Last Admin: 03/30/18 04:53 Dose: 4 mg Pantoprazole Sodium (Protonix Inj) 40 mg IVP DAILY [facility] Last Admin: 03/31/18 09:18 Dose: 40 mg Potassium Chloride (Potassium Chloride Oral Soln) 20 meq PO TID [facility] Last Admin: 03/31/18 13:13 Dose: 20 meq - Labs Labs: 03/31/18 11:09 03/31/18 11:09 - Constitutional Appears: Non-toxic, No Acute Distress - Head Exam Head Exam: ATRAUMATIC, NORMAL INSPECTION, NORMOCEPHALIC - Eye Exam Eye Exam: EOMI - ENT Exam ENT Exam: Mucous Membranes Moist - Neck Exam Neck Exam: Full ROM, Normal Inspection - Respiratory Exam Respiratory Exam: NORMAL BREATHING PATTERN. absent: Respiratory Distress - Cardiovascular Exam Cardiovascular Exam: +S1, +S2 - GI/Abdominal Exam GI & Abdominal Exam: Soft, Normal Bowel Sounds. absent: Tenderness - Extremities Exam Extremities Exam: Full ROM, Normal Inspection - Back Exam Back Exam: NORMAL INSPECTION - Neurological Exam Neurological Exam: Alert, Awake, Oriented x3 - Psychiatric Exam Psychiatric exam: Normal Affect, Normal Mood - Skin Skin Exam: Dry, Intact, Normal Color, Warm Assessment and Plan - Assessment and Plan (Free Text) Assessment: This is an 82 yo male with 1. Appendectomy w/ postop ileus -POD number 11 -OOB to chair -PT/OT -Surgery following. -GI Dr. Vargas consulted. Help appreciated. Abdomen/pelvis ct: Midline abdominal surgical yessi. Fluid-filled distended stomach. Dilated fluid and gas filled small bowel measuring up to 4.9 cm in diameter; appearance concerning for small bowel obstruction versus ileus. Small subcapsular hepatic fluid versus small ascites. Gas within the urinary bladder may be secondary to recent instrumentation. Correlate clinically. Infection not excluded in the proper clinical setting. Prostate radiation seeds. Bilateral lower lobe consolidations and small pleural effusions. Large amount of fluid within the included portions of the dilated esophagus consistent with gastroesophageal reflux. Abdomen xray: Most likely post op ileus -patient now passing flatus and having BMs. Medications: Zofran 4mg IVP Q4 PRN 2. Pneumonia Blood cx, urine cx negative Chest ct: No large central or segmental pulmonary embolus identified. Small bilateral pleural effusions and associated dependent consolidations. Lingula and right upper lobe consolidations consistent with multifocal pneumonia. Large amount of fluid within the esophagus consistent with severe gastroesophageal reflux. Coarse large calcifications adjacent to the mid to dist al esophagus, possibly lymph nodes. Limited visualized portions of the upper abdomen: Small perihepatic ascites. Partially imaged distended fluid-filled bowel loops; correlate clinically for ileus. Partially imaged diverticulosis. Medications: Cefepime 1gm IVPB Q12 H Vancomycin 1,000mg ivpb q12 [facility] 3. Hypokalemia -Replete as necessary Medications: Potassium Chloride 20 meq PO TID [facility] 4. GI/DVT ppx -Protonix -Heparin SC q 8 hrs -Fat emulsion @42mls/hr iv All management per Dr. Torres
--- NOTE | 2018-03-31 15:10 | CT ---
PROCEDURE: CT Abdomen and Pelvis with oral and IV contrast. HISTORY: s/p appendectomy COMPARISON: CT abdomen and pelvis without contrast performed 03/23/18 TECHNIQUE: Contiguous axial images of the abdomen and pelvis. Oral and IV contrast was administered. Coronal and Sagittal reformats generated and reviewed. Contrast dose: 100 mL Visipaque 320 IV Radiation dose: Total exam DLP = 1081.69 mGy-cm. This CT exam was performed using one or more of the following dose reduction techniques: Automated exposure control, adjustment of the mA and/or kV according to patient size, and/or use of iterative reconstruction technique. FINDINGS: LOWER THORAX: Small bilateral pleural effusions and associated consolidations. Distal esophageal wall thickening, gastroesophageal reflux, and small hiatal hernia. Coarse calcifications are noted adjacent to the distal esophagus bilaterally. LIVER: Hepatic dome excluded from view. Otherwise unremarkable. GALLBLADDER AND BILE DUCTS: Unremarkable. PANCREAS: Pancreatic edema with more evident fullness of the pancreatic head and tail. Peripancreatic edema. SPLEEN: Unremarkable. ADRENALS: Mild hypertrophy. KIDNEYS AND URETERS: The kidneys enhance symmetrically. No hydronephrosis or obstructing renal calculus. BLADDER: Mildly thick-walled under distended urinary bladder. REPRODUCTIVE: Prostate radiation seeds. APPENDIX: Appendix is not identified. No secondary signs of acute appendicitis appreciated. BOWEL: The stomach is nondistended. No evidence of small bowel obstruction. Small bowel wall thickening particularly of jejunal loops; correlate for enteritis. Wall thickening of the sigmoid colon. Rectal wall thickening. PERITONEUM: Small abdominal/pelvic fluid. No definite free air. LYMPH NODES: No bulky lymphadenopathy identified. VASCULATURE: No aortic aneurysm. Atherosclerotic calcifications of the aorta. BONES: Osseous demineralization. Degenerative changes. OTHER FINDINGS: None. IMPRESSION: Appearance as above consistent with acute pancreatitis. Recommend correlation with amylase and lipase. Small bowel wall thickening concerning for enteritis. Marked rectal wall thickening; correlate clinically for possibility of proctitis. Wall thickening of the sigmoid colon; correlate for infectious/inflammatory etiologies. Recommend follow-up including colonoscopy if indicated. Small bilateral pleural effusions and associated consolidations. Additional findings as above.
--- NOTE | 2018-03-31 15:32 | CP.PCM.PN ---
Subjective - Date & Time of Evaluation Date of Evaluation: 03/31/18 Time of Evaluation: 07:00 - Subjective Subjective: SURGERY PROGRESS NOTE FOR DR. MALIN Patient seen and examined at bedside. Pt reports that he is passing flatus and having BMs but no diarrhea. Tolerating diet. Denies abdominal pain. Reports mild nausea. Objective - Vital Signs/Intake and Output Vital Signs (last 24 hours): Temp Pulse Resp BP Pulse Ox 98.6 F 80 20 134/75 97 03/31/18 07:30 03/31/18 07:30 03/31/18 07:30 03/31/18 07:30 03/31/18 07:30 Intake and Output: 03/31/18 03/31/18 06:59 18:59 Intake Total 1332 736 Output Total 750 Balance 582 736 - Medications Medications: Current Medications Heparin Sodium (Porcine) (Heparin) 5,000 units SC Q8 [facility] Last Admin: 03/31/18 13:13 Dose: 5,000 units Cefepime HCl 1 gm/ Dextrose 50 mls @ 100 mls/hr IVPB Q12H [facility]; Protocol Last Admin: 03/31/18 04:58 Dose: 100 mls/hr Multivitamins/Vitamin C 10 ml/Chromium/Copper/Manganese/Zinc 1 ml/ Amino Acids 1,011 mls @ 42 mls/hr IV .Q24H [facility] Stop: 03/31/18 18:01 Last Admin: 03/30/18 18:43 Dose: 42 mls/hr Vancomycin HCl 750 mg/ (Vancomycin HCl) 150 mls @ 133 mls/hr IVPB Q12H [facility]; Protocol Last Admin: 03/31/18 05:33 Dose: 133 mls/hr Multivitamins/Vitamin C 10 ml/Chromium/Copper/Manganese/Zinc 1 ml/ Amino Acids 1,011 mls @ 42 mls/hr IV .Q24H [facility] Stop: 04/01/18 17:59 Fat Emulsion Intravenous (Intralipid 20%) 500 mls @ 42 mls/hr IV QOD@1800 [facility] Stop: 04/03/18 18:01 Magnesium Oxide (Mag-Ox) 400 mg PO DAILY [facility] Stop: 04/01/18 10:31 Last Admin: 03/31/18 09:18 Dose: 400 mg Ondansetron HCl (Zofran Inj) 4 mg IVP Q4 PRN PRN Reason: Nausea/Vomiting Last Admin: 03/30/18 04:53 Dose: 4 mg Pantoprazole Sodium (Protonix Inj) 40 mg IVP DAILY [facility] Last Admin: 03/31/18 09:18 Dose: 40 mg Potassium Chloride (Potassium Chloride Oral Soln) 20 meq PO TID [facility] Last Admin: 03/31/18 13:13 Dose: 20 meq - Labs Labs: 03/31/18 11:09 03/31/18 11:09 - Constitutional Appears: Non-toxic, No Acute Distress - Respiratory Exam Respiratory Exam: NORMAL BREATHING PATTERN. absent: Respiratory Distress - Cardiovascular Exam Cardiovascular Exam: +S1, +S2 - GI/Abdominal Exam GI & Abdominal Exam: Distended (mild), Soft. absent: Firm, Guarding, Rigid, Tenderness, Rebound Additional comments: inferior incision with area of erythema - Neurological Exam Neurological Exam: Alert, Awake, Oriented x3 - Psychiatric Exam Psychiatric exam: Normal Affect, Normal Mood Assessment and Plan - Assessment and Plan (Free Text) Assessment: 82yo M with PMHx of HTN, hyperlipidemia, prostate cancer s/p Laparoscopic converted to open appendectomy POD#11 with post op ileus, pneumonia, hypokalemia - Few yessi removed and ~5cc serosanguinous fluid drained out - Pt tolerating regular diet + Ensure supplements - Continue Abx for pneumonia, on cefepime & vanco since 03/24, day #8 - Encourage IS and ambulation - Continue PT - DVT PPx: heparin - Possible DC to rehab tomorrow - Discussed plan with Dr. Braden Mims PGY-4
[2018-03-31] MEDS: Vancomycin 750mg/NS 150 ml 150 ML IVPB SCH (17:31)
[2018-03-31] MEDS: PPN IV SCH (18:00)
[2018-03-31] MEDS ORDERED: PPN # 5 IV ONE (18:00)
[2018-03-31] MEDS ORDERED: Fat Emulsion 20% IV 500 ML IV SCH (18:00)
--- NOTE | 2018-03-31 19:20 | PN ---
DATE: 03/31/2018 SUBJECTIVE: This is an 82-year-old male, seen and examined in rounds without significant clinical changes with intermittent period of mild abdominal pain, had been on peripheral hyperalimentation. No nausea, vomiting, no evidence of active GI bleeding and much less abdominal pain and distension. The entire chart is reviewed and today's lab result showed white blood cells of 15.3, hemoglobin 10.5, hematocrit 31.4. Sodium 128, BUN 23, normal creatinine, glucose 143, calcium 71, with albumin 2.9 and total protein 5.4. I ordered repeat CAT scan of the abdomen and pelvis due to the patient's persistent leukocytosis which was performed today. Official report is seen with evidence of acute pancreatitis with possible enteritis as well as marked rectal wall thickening with possible proctitis as well as the sigmoid colon wall thickening, recommended colonoscopy with evidence of small hiatus hernia. PHYSICAL EXAMINATION: GENERAL: An 82-year-old male, awake, alert and oriented. VITAL SIGNS: Afebrile with hear rate f 82, respiratory rate of 20 to 22, blood pressure 130/70. HEENT: Showed pale, dry oral mucous membrane, nonicteric sclerae. LUNGS: Few scattered crepitations. Decreased air entry at bases. HEART: Positive S1 and S2. ABDOMEN: Soft with mild generalized tenderness, no mass or organomegaly,no rebound tenderness or guarding. EXTREMITIES: Without significant clinical changes. IMPRESSION: 1. Status post appendectomy. 2. Enteritis with an ileus, resolved clinically. 3. Abnormal repeat CAT scan of the abdomen and the pelvis. SUGGESTION: 1. Agree with your plan. 2. Due to the patient's anemia should be repeated. 3. Stool for C. diff. 4. Endoscopic evaluation of the GI tract only when the patient is more stable clinically, that should be done as a outpatient. 5. Further recommendation to follow. Mary Tsefaye MD
[2018-03-31] MEDS: Sodium Chloride 0.9% 1,000 ML IV SCH (22:36)
[2018-04-01] MEDS: Vancomycin 750mg/NS 150 ml 150 ML IVPB SCH ×2 (05:07→18:40)
--- NOTE | 2018-04-01 07:16 | PN ---
DATE: 03/31/2018 SUBJECTIVE: The patient was seen today, 03/31/2018. He is not in any cardiopulmonary distress, still has abdominal distention. OBJECTIVE: VITAL SIGNS: Blood pressure is 151/82, temperature 98.6, respiratory rate 20, and pulse 79. HEENT: Pupils equal and reactive to light. Normal-appearing mucosa of the conjunctivae, oropharynx, and nasal membrane mucosa. NECK: Supple. No JVD. No carotid bruit. No lymph node. No thyromegaly. CHEST AND LUNGS: Bilateral symmetrical expansion. Good air exchange. No rales. No rhonchi. CARDIOVASCULAR SYSTEM: PMI not localized. S1, S2. No additional sounds. ABDOMEN: Normoactive bowel sounds. No tenderness. No organomegaly. No masses. EXTREMITIES: No cyanosis, no clubbing, no edema. CENTRAL NERVOUS SYSTEM: Alert, awake, and oriented x3. No neurological deficit could be appreciated. CAT scan done today showed pancreatic edema suggestive of pancreatitis and lipase is 1221 and amylase 259. ASSESSMENT: 1. Pancreatitis. 2. History of hypertension. 3. Pneumonia. PLAN: We will start the patient on IV fluid. Continue current antibiotics, also supplement electrolytes. Continue physical therapy. Charlene Sewell MD
--- NOTE | 2018-04-01 07:21 | CON ---
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 The patient's postoperative course was complicated with ileus and the patient was on IV fluid. The patient also developed leukocytosis and pneumonia. The patient had a GI consult done by Dr. Vargas, and he was started on PPN. Eventually, diet was advanced as the patient moved bowel. Medical consultation was called for medical followup while the patient is in the hospital. The patient is complaining of generalized weakness and positive cough. MEDICATIONS: Reviewed as per MAR. SOCIAL HISTORY: No history of smoking, EtOH or substance abuse. FAMILY HISTORY: Not contributory. PAST MEDICAL HISTORY: Hypertension. PHYSICAL EXAMINATION: GENERAL: The patient was in bed, not in any cardiopulmonary distress. VITAL SIGNS: Blood pressure 131/71, temperature 98.9, respiratory rate 22 and pulse 89. HEENT: Pupils equal, reactive to light. Normal-appearing mucosa of the conjunctivae, oropharynx and nasal membrane mucosa. NECK: Supple. No JVD. No carotid bruit. No lymph node. No thyromegaly. CHEST AND LUNGS: Bilateral symmetrical expansion. Good air exchange. No rales, no rhonchi. CARDIOVASCULAR SYSTEM: PMI not localized. S1, S2. No additional sounds. ABDOMEN: Slightly distended. Positive bowel sounds. No tenderness. No organomegaly. No masses. EXTREMITIES: No cyanosis, no clubbing, no edema. CENTRAL NERVOUS SYSTEM: Alert, awake, oriented x3. No neurological deficit could be appreciated. ASSESSMENT: 1. Status post laparotomy, complicated with ileus. 2. Healthcare-related pneumonia. 3. History of hypertension. PLAN: Continue current antibiotics and use incentive spirometry and physical therapy. We will follow up with you. Charlene Sewell MD
[2018-04-01 07:35] LABS: BASO # 0.1 K/uL (0.0-0.2); BASO % 0.4 % (0.0-2.0); EOS # 0.3 K/uL (0.0-0.7); EOS % 1.9 % (0.0-4.0); HEMOGLOBIN 9.7 g/dL (12.0-18.0); LYMPH # 1.5 K/uL (1.0-4.3); LYMPH % 10.3 % (20.0-40.0); MEAN CELL VOLUME 83.3 fL (80.0-94.0); MEAN CORPUSCULAR HEMOGLOBIN 27.7 pg (27.0-31.0); MEAN CORPUSCULAR HGB CONC 33.3 g/dL (33.0-37.0); MONO # 1.4 K/uL (0.0-0.8); MONO % 9.4 % (0.0-10.0); NEUT # 11.5 K/uL (1.8-7.0); RBC 3.49 Mil/uL (4.40-5.90); WHITE BLOOD COUNT 14.7 K/uL (4.8-10.8)
--- NOTE | 2018-04-01 07:37 | CP.PCM.PN ---
Subjective - Date & Time of Evaluation Date of Evaluation: 04/01/18 Time of Evaluation: 07:35 Objective - Vital Signs/Intake and Output Vital Signs (last 24 hours): Temp Pulse Resp BP Pulse Ox 98.2 F 84 20 131/75 96 03/31/18 23:50 03/31/18 23:50 03/31/18 23:50 03/31/18 23:50 03/31/18 23:50 Intake and Output: 04/01/18 04/01/18 06:59 18:59 Intake Total 1550 Output Total 1450 Balance 100 - Medications Medications: Current Medications Heparin Sodium (Porcine) (Heparin) 5,000 units SC Q8 [facility] Last Admin: 04/01/18 05:07 Dose: 5,000 units Cefepime HCl 1 gm/ Dextrose 50 mls @ 100 mls/hr IVPB Q12H [facility]; Protocol Last Admin: 04/01/18 04:00 Dose: 100 mls/hr Vancomycin HCl (Vancocin 750mg/Ns 150 Ml) 150 mls @ 133 mls/hr IVPB Q12H [facility]; Protocol Stop: 04/05/18 18:01 Last Admin: 04/01/18 05:07 Dose: 133 mls/hr Sodium Chloride (Sodium Chloride 0.9%) 1,000 mls @ 100 mls/hr IV .Q10H [facility] Last Admin: 03/31/18 22:36 Dose: 100 mls/hr Magnesium Oxide (Mag-Ox) 400 mg PO DAILY [facility] Stop: 04/01/18 10:31 Last Admin: 03/31/18 09:18 Dose: 400 mg Ondansetron HCl (Zofran Inj) 4 mg IVP Q4 PRN PRN Reason: Nausea/Vomiting Last Admin: 03/30/18 04:53 Dose: 4 mg Pantoprazole Sodium (Protonix Inj) 40 mg IVP DAILY [facility] Last Admin: 03/31/18 09:18 Dose: 40 mg Potassium Chloride (Potassium Chloride Oral Soln) 20 meq PO TID [facility] Last Admin: 03/31/18 17:03 Dose: 20 meq - Labs Labs: 03/31/18 11:09 03/31/18 11:09 Assessment and Plan - Assessment and Plan (Free Text) Plan: Appendectomy w/ postop ileus -POD number 11 -OOB to chair -PT/OT -Surgery following. -GI Dr. Vargas consulted. Help appreciated. Abdomen/pelvis ct: Midline abdominal surgical yessi. Fluid-filled distended stomach. Dilated fluid and gas filled small bowel measuring up to 4.9 cm in diameter; appearance concerning for small bowel obstruction versus ileus. Small subcapsular hepatic fluid versus small ascites. Gas within the urinary bladder may be secondary to recent instrumentation. Correlate clinically. Infection not excluded in the proper clinical setting. Prostate radiation seeds. Bilateral lower lobe consolidations and small pleural effusions. Large amount of fluid within the included portions of the dilated esophagus consistent with gastroesophageal reflux. Abdomen xray: Most likely post op ileus -patient now passing flatus and having BMs. Medications: Zofran 4mg IVP Q4 PRN Pneumonia Blood cx, urine cx negative Chest ct: No large central or segmental pulmonary embolus identified. Small bilateral pleural effusions and associated dependent consolidations. Lingula and right upper lobe consolidations consistent with multifocal pneumonia. Large amount of fluid within the esophagus consistent with severe gastroesophageal reflux. Coarse large calcifications adjacent to the mid to distal esophagus, possibly lymph nodes. Limited visualized portions of the upper abdomen: Small perihepatic ascites. Partially imaged distended fluid-filled bowel loops; correlate clinically for ileus. Partially imaged diverticulosis. Medications: Cefepime 1gm IVPB Q12 H Vancomycin 1,000mg ivpb q12 [facility] Hypokalemia -Replete as necessary Medications: Potassium Chloride 20 meq PO TID [facility] GI/DVT ppx -Protonix -Heparin SC q 8 hrs -Fat emulsion @42mls/hr iv
[2018-04-01 07:58] LABS: ALB/GLOB RATIO 1.2 (1.0-2.1); ALBUMIN 2.7 g/dL (3.5-5.0); ALT/SGPT 46 U/L (21-72); AST/SGOT 47 U/L (17-59); BLOOD UREA NITROGEN 20 mg/dL (9-20); CALCIUM 7.4 mg/dl (8.6-10.4); GFR NON-AFRICAN AMERICAN > 60
[2018-04-01] MEDS: Sodium Chloride 0.9% 1,000 ML IV SCH ×4 (08:00→21:13)
[2018-04-01] MEDS: Potassium Chloride 20 mEq/15 ml LIQ UD PO SCH ×3 (10:16→18:40)
[2018-04-01] MEDS: Magnesium Oxide 400 mg Tab UD PO SCH (10:17)
[2018-04-01] MEDS ORDERED: Magnesium Oxide 400 mg Tab UD PO ONE (12:03)
[2018-04-01 16:45] VITALS: O2SAT 95
--- NOTE | 2018-04-01 19:08 | CP.PCM.PN ---
Subjective - Date & Time of Evaluation Date of Evaluation: 04/01/18 Time of Evaluation: 07:00 - Subjective Subjective: SURGERY PROGRESS NOTE FOR DR. MALIN Patient seen and examined at bedside. He is OOB to chair. Pt reports that he is passing flatus and having BMs. Tolerating diet. Denies abdominal pain. Objective - Vital Signs/Intake and Output Vital Signs (last 24 hours): Temp Pulse Resp BP Pulse Ox 98.6 F 86 20 108/68 95 04/01/18 15:44 04/01/18 15:44 04/01/18 15:44 04/01/18 15:44 04/01/18 15:44 - Medications Medications: Current Medications Heparin Sodium (Porcine) (Heparin) 5,000 units SC Q8 [facility] Last Admin: 04/01/18 14:30 Dose: 5,000 units Cefepime HCl 1 gm/ Dextrose 50 mls @ 100 mls/hr IVPB Q12H [facility]; Protocol Last Admin: 04/01/18 18:39 Dose: 100 mls/hr Vancomycin HCl (Vancocin 750mg/Ns 150 Ml) 150 mls @ 133 mls/hr IVPB Q12H [facility]; Protocol Stop: 04/05/18 18:01 Last Admin: 04/01/18 18:40 Dose: 133 mls/hr Sodium Chloride (Sodium Chloride 0.9%) 1,000 mls @ 100 mls/hr IV .Q10H [facility] Last Admin: 04/01/18 10:28 Dose: 100 mls/hr Ondansetron HCl (Zofran Inj) 4 mg IVP Q4 PRN PRN Reason: Nausea/Vomiting Last Admin: 03/30/18 04:53 Dose: 4 mg Pantoprazole Sodium (Protonix Inj) 40 mg IVP DAILY [facility] Last Admin: 04/01/18 10:17 Dose: 40 mg Potassium Chloride (Potassium Chloride Oral Soln) 20 meq PO TID [facility] Last Admin: 04/01/18 18:40 Dose: 20 meq - Labs Labs: 04/01/18 07:09 04/01/18 07:09 - Constitutional Appears: Non-toxic - Respiratory Exam Respiratory Exam: NORMAL BREATHING PATTERN. absent: Respiratory Distress - Cardiovascular Exam Cardiovascular Exam: +S1, +S2 - GI/Abdominal Exam GI & Abdominal Exam: Distended (mild), Soft. absent: Firm, Guarding, Rigid, Tenderness, Rebound Additional comments: yessi in place erythematous area at inferior portion of incision - Neurological Exam Neurological Exam: Alert, Awake - Psychiatric Exam Psychiatric exam: Normal Affect, Normal Mood Assessment and Plan - Assessment and Plan (Free Text) Assessment: 82yo M with PMHx of HTN, hyperlipidemia, prostate cancer s/p Laparoscopic converted to open appendectomy POD#12 with post op ileus, pneumonia, hypokalemia - Pt tolerating regular diet + Ensure supplements - Continue Abx for pneumonia, on cefepime & vanco since 03/24, day #9 - Cx growing gram - rods from incision collection - Encourage IS and ambulation - Continue PT - DVT PPx: heparin - Possible DC to rehab tomorrow - Discussed plan with Dr. Braden Mims PGY-4
[2018-04-01 19:28] LABS: AMYLASE 224 U/L (30-110); LIPASE 1073 U/L (23-300)
--- NOTE | 2018-04-01 23:16 | PN ---
DATE: 04/01/2018 LOCATION: 671, bed A. SUBJECTIVE: This is an 82-year-old male. Seen and examined in rounds without significant clinical changes or reported active bleeding recently with reported discharge at the site of the new incision, but no reported active bleeding. The entire chart is reviewed including but not limited to the most recent lab and radiology study results, current and the previous medication lists. Today's lab showed leukocytosis of 14.7, hemoglobin 9.7, hematocrit 29.1 with normal platelet count. Sodium 129, calcium 7.4, magnesium 1.4. Albumin 2.7 with total protein 5.1. I ordered amylase level which was 259 and lipase 1221 with increased CEA 19-9 of 66 for which I prefer the patient to be kept n.p.o. until lipase and amylase levels are normal. PHYSICAL EXAMINATION: GENERAL: An 82-year-old male. VITAL SIGNS: Afebrile with pulse of 84, respiratory rate 20 to 22, and blood pressure 116/72. HEENT: Showed dry, pale mucous membranes, nonicteric sclerae. LUNGS: Few scattered crepitations. Decreased air entry at bases. HEART: Positive S1 and S2. ABDOMEN: Soft with mild generalized tenderness. No mass or organomegaly. No rebound tenderness or guarding. Abdominal incision is covered with clean dressing. EXTREMITIES: Without significant clubbing, cyanosis or edema. NEUROLOGIC: No reported new neurological deficits, sensory or motor. IMPRESSION: 1. Acute pancreatitis, clinically the patient is improving. 2. Status post appendectomy. 3. Ileus, improving clinically. 4. Pneumonia by recent history. 5. Repeat serum lipase and amylase levels at the morning. 6. Abnormal CAT scan of the abdomen and pelvis. SUGGESTIONS: 1. Continue current management. 2. Peripheral hyperalimentation in the meantime. 3. Further recommendation to follow. Mary Tesfaye MD
[2018-04-02] MEDS: Vancomycin 750mg/NS 150 ml 150 ML IVPB SCH (05:04)
[2018-04-02] MEDS: Sodium Chloride 0.9% 1,000 ML IV SCH (05:09)
[2018-04-02] MEDS ORDERED: Magnesium Sulfate 1 gm in D5W 1 GM/100 ML BAG IVPB ONE (05:46)
[2018-04-02 06:31] LABS: BASO # 0.1 K/uL (0.0-0.2); BASO % 0.5 % (0.0-2.0); EOS # 0.3 K/uL (0.0-0.7); HEMOGLOBIN 9.7 g/dL (12.0-18.0); LYMPH # 1.9 K/uL (1.0-4.3); LYMPH % 11.2 % (20.0-40.0); MEAN CELL VOLUME 83.9 fL (80.0-94.0); MEAN CORPUSCULAR HEMOGLOBIN 27.6 pg (27.0-31.0); MEAN CORPUSCULAR HGB CONC 32.9 g/dL (33.0-37.0); MEAN PLATELET VOLUME 9.3 fL (7.2-11.7); MONO # 1.6 K/uL (0.0-0.8); MONO % 9.5 % (0.0-10.0); NEUT # 12.7 K/uL (1.8-7.0); NEUT % 76.8 % (50.0-75.0); NRBC % 0.1 % (0.0-2.0); RBC 3.53 Mil/uL (4.40-5.90); RED CELL DISTRIBUTION WIDTH 15.5 % (11.5-14.5); WHITE BLOOD COUNT 16.5 K/uL (4.8-10.8)
[2018-04-02 06:44] LABS: AMYLASE 170 U/L (30-110); BLOOD UREA NITROGEN 21 mg/dL (9-20); CALCIUM 7.3 mg/dl (8.6-10.4); GFR NON-AFRICAN AMERICAN > 60; LIPASE 735 U/L (23-300)
--- NOTE | 2018-04-02 07:47 | CP.PCM.DIS ---
Provider - Provider Date of Admission: 03/20/18 10:44 Attending physician: Kaleb Feliciano Jr, MD Consults: 03/23/18 18:18 Physician Consult Routine Comment: Consulting Provider: Mary Vargas Consulting Physician: Mary Vargas Reason for Consult: abd distension 03/24/18 15:28 Pulmonology Consult Routine Comment: Consulting Provider: Madonna Torres Consulting Physician: Madonna Torres Reason for Consult: hypoxia; possible PNA s/p open appy 03/30/18 13:09 Internal Medicine Consult Routine Comment: Consulting Provider: Charlene Sewell Consulting Physician: Charlene Sewell Reason for Consult: Leukocytosis Time Spent in preparation of Discharge (in minutes): 35 Hospital Course - Lab Results Lab Results: Micro Results 03/31/18 14:27 Abdomen Gram Stain - Final 03/31/18 14:27 Abdomen Wound Culture - Preliminary Gram Negative Christofer 03/24/18 18:18 Blood-Venous Blood Culture - Final NO GROWTH AFTER 5 DAYS 03/24/18 18:18 Blood-Venous Gram Stain - Final TEST NOT PERFORMED 03/24/18 18:18 Blood-Venous Blood Culture - Final NO GROWTH AFTER 5 DAYS 03/24/18 18:18 Blood-Venous Gram Stain - Final TEST NOT PERFORMED 03/24/18 18:18 Urine Random Urine Culture - Final No Growth (<1,000 CFU/ML) Most Recent Lab Values WBC 16.5 K/uL (4.8-10.8) H 04/02/18 06:20 RBC 3.53 Mil/uL (4.40-5.90) L 04/02/18 06:20 Hgb 9.7 g/dL (12.0-18.0) L 04/02/18 06:20 Hct 29.6 % (35.0-51.0) L 04/02/18 06:20 MCV 83.9 fL (80.0-94.0) 04/02/18 06:20 MCH 27.6 pg (27.0-31.0) 04/02/18 06:20 MCHC 32.9 g/dL (33.0-37.0) L 04/02/18 06:20 RDW 15.5 % (11.5-14.5) H 04/02/18 06:20 Plt Count 296 K/uL (130-400) 04/02/18 06:20 MPV 9.3 fL (7.2-11.7) 04/02/18 06:20 Neut % (Auto) 76.8 % (50.0-75.0) H 04/02/18 06:20 Lymph % (Auto) 11.2 % (20.0-40.0) L 04/02/18 06:20 [place] % (Auto) 9.5 % (0.0-10.0) 04/02/18 06:20 Eos % (Auto) 2.0 % (0.0-4.0) 04/02/18 06:20 Baso % (Auto) 0.5 % (0.0-2.0) 04/02/18 06:20 Neut # (Auto) 12.7 K/uL (1.8-7.0) H 04/02/18 06:20 Lymph # (Auto) 1.9 K/uL (1.0-4.3) 04/02/18 06:20 [place] # (Auto) 1.6 K/uL (0.0-0.8) H 04/02/18 06:20 Eos # (Auto) 0.3 K/uL (0.0-0.7) 04/02/18 06:20 Baso # (Auto) 0.1 K/uL (0.0-0.2) 04/02/18 06:20 Neutrophils % (Manual) 79 % (50-75) H 03/31/18 11:09 Band Neutrophils % 1 % (0-2) 03/31/18 11:09 Lymphocytes % (Manual) 10 % (20-40) L 03/31/18 11:09 Reactive Lymphs % 1 % (0-0) H 03/30/18 07:00 Monocytes % (Manual) 8 % (0-10) 03/31/18 11:09 Eosinophils % (Manual) 2 % (0-4) 03/31/18 11:09 Platelet Estimate Normal (NORMAL) 03/31/18 11:09 Poikilocytosis (manual Slight 03/31/18 11:09 Anisocytosis (manual) Slight 03/31/18 11:09 Ovalocytes Slight 03/31/18 11:09 Yos[place]any Cells Slight 03/31/18 11:09 Sodium 130 mmol/L (132-148) L 04/02/18 06:20 Potassium 4.1 mmol/L (3.6-5.2) 04/02/18 06:20 Chloride 101 mmol/L (98-107) 04/02/18 06:20 Carbon Dioxide 24 mmol/L (22-30) 04/02/18 06:20 Anion Gap 10 (10-20) 04/02/18 06:20 BUN 21 mg/dL (9-20) H 04/02/18 06:20 Creatinine 0.7 mg/dL (0.8-1.5) L 04/02/18 06:20 Est GFR ( Amer) > 60 04/02/18 06:20 Est GFR (Non-Af Amer) > 60 04/02/18 06:20 POC Glucose (mg/dL) 127 mg/dL (65-110) H 03/28/18 17:23 Random Glucose 96 mg/dL (75-110) 04/02/18 06:20 Calcium 7.3 mg/dl (8.6-10.4) L 04/02/18 06:20 Phosphorus 2.8 mg/dL (2.5-4.5) 04/02/18 06:20 Magnesium 1.4 mg/dL (1.6-2.3) L 04/02/18 06:20 Total Bilirubin 0.4 mg/dL (0.2-1.3) 04/01/18 07:09 AST 47 U/L (17-59) 04/01/18 07:09 ALT 46 U/L (21-72) 04/01/18 07:09 Alkaline Phosphatase 80 U/L (38-126) 04/01/18 07:09 Total Protein 5.1 g/dL (6.3-8.3) L 04/01/18 07:09 Albumin 2.7 g/dL (3.5-5.0) L 04/01/18 07:09 Globulin 2.3 gm/dL (2.2-3.9) 04/01/18 07:09 Albumin/Globulin Ratio 1.2 (1.0-2.1) 04/01/18 07:09 Amylase 170 U/L (30-110) H D 04/02/18 06:20 Lipase 735 U/L (23-300) H 04/02/18 06:20 Carcinoembryonic Ag 1.2 ng/mL (0-3.0) 03/31/18 15:50 CA 19-9 Antigen 66.2 U/mL (0-37) H D 03/31/18 15:50 Vancomycin Trough 18.4 ug/mL (5.0-10.0) H 04/02/18 06:20 - Hospital Course Hospital Course: On admission: 82yo M with PMHx of HTN, hyperlipidemia, prostate cancer s/p Laparoscopic converted to open appendectomy with post op ileus, pneumonia, hypokalemia. Patient may take tylenol or advil for pain. Patient is to follow up with Dr. Feliciano in one week. Patient may shower. Patient is to continue Keflex 500mg TID for another 4 days (04/06/18). Patient may resume regular diet + Ensure supplements. Discharge Exam - Head Exam Head Exam: ATRAUMATIC, NORMAL INSPECTION, NORMOCEPHALIC Discharge Plan - Follow Up Plan Condition: GOOD Disposition: REHAB FACILITY/REHAB UNIT Additional Instructions: Patient is stable for discharge to subacute rehab as per Dr. Feliciano. Patient is to follow up with Dr. Feliciano in one week. Patient may take tylenol or advil for pain. Patient may shower. Patient is to continue IV antibiotics for another 4 days (04/06/18). Patient may resume regular diet + Ensure supplements. Referrals: Kaleb Feliciano Jr., MD [Staff Provider] -
--- NOTE | 2018-04-02 08:18 | PN ---
DATE: 04/01/2018 This is a late entry for daily progress note done on 04/01/2018. SUBJECTIVE: The patient was seen on 04/01/2018. He is tolerating food and he was started on IV fluid, treating acute pancreatitis as seen in the CAT scan and elevated lipase. PHYSICAL EXAMINATION: VITAL SIGNS: Blood pressure was 108/68, temperature 98.6, respiratory rate 20 and pulse 86. HEENT: Pupils equal, reactive to light. Normal-appearing mucosa of the conjunctivae, oropharynx and nasal membrane mucosa. NECK: Supple. No JVD. No carotid bruit. No lymph nodes. No thyromegaly. CHEST AND LUNGS: Bilateral symmetrical expansion. Good air exchange. No rales, no rhonchi. CARDIOVASCULAR SYSTEM: PMI not localized. S1, S2. No additional sounds. ABDOMEN: Normoactive bowel sounds. No tenderness. No organomegaly. No masses. EXTREMITIES: No cyanosis, no clubbing, no edema. WEALTH MANAGEMENT DIRECTOR: Alert, awake, oriented x3. No neurological deficit could be appreciated. ASSESSMENT: 1. Status post laparotomy, for removal of appendiceal tumor. 2. Healthcare related pneumonia. 3. Acute pancreatitis. PLAN: Continue current medications, IV antibiotics as well as IV fluids. Monitor electrolytes and physical therapy. Charlene Sewell MD
--- NOTE | 2018-04-02 09:40 | CP.PCM.DIS ---
Provider - Provider Date of Admission: 03/20/18 10:44 Attending physician: Kaleb Feliciano Jr, MD Consults: 03/23/18 18:18 Physician Consult Routine Comment: Consulting Provider: Mary Vargas Consulting Physician: Mary Vargas Reason for Consult: abd distension 03/24/18 15:28 Pulmonology Consult Routine Comment: Consulting Provider: Madonna Torres Consulting Physician: Madonna Torres Reason for Consult: hypoxia; possible PNA s/p open appy 03/30/18 13:09 Internal Medicine Consult Routine Comment: Consulting Provider: Charlene Sewell Consulting Physician: Charlene Sewell Reason for Consult: Leukocytosis Time Spent in preparation of Discharge (in minutes): 35 Diagnosis - Discharge Diagnosis (1) Chronic appendicitis Status: Acute (2) S/P appendectomy Status: Acute (3) Pneumonia Status: Acute (4) Extended spectrum beta lactamase (ESBL) resistance Status: Acute Hospital Course - Lab Results Lab Results: Micro Results 03/31/18 14:27 Abdomen Gram Stain - Final 03/31/18 14:27 Abdomen Wound Culture - Preliminary Gram Negative Christofer 03/24/18 18:18 Blood-Venous Blood Culture - Final NO GROWTH AFTER 5 DAYS 03/24/18 18:18 Blood-Venous Gram Stain - Final TEST NOT PERFORMED 03/24/18 18:18 Blood-Venous Blood Culture - Final NO GROWTH AFTER 5 DAYS 03/24/18 18:18 Blood-Venous Gram Stain - Final TEST NOT PERFORMED 03/24/18 18:18 Urine Random Urine Culture - Final No Growth (<1,000 CFU/ML) Most Recent Lab Values WBC 16.5 K/uL (4.8-10.8) H 04/02/18 06:20 RBC 3.53 Mil/uL (4.40-5.90) L 04/02/18 06:20 Hgb 9.7 g/dL (12.0-18.0) L 04/02/18 06:20 Hct 29.6 % (35.0-51.0) L 04/02/18 06:20 MCV 83.9 fL (80.0-94.0) 04/02/18 06:20 MCH 27.6 pg (27.0-31.0) 04/02/18 06:20 MCHC 32.9 g/dL (33.0-37.0) L 04/02/18 06:20 RDW 15.5 % (11.5-14.5) H 04/02/18 06:20 Plt Count 296 K/uL (130-400) 04/02/18 06:20 MPV 9.3 fL (7.2-11.7) 04/02/18 06:20 Neut % (Auto) 76.8 % (50.0-75.0) H 04/02/18 06:20 Lymph % (Auto) 11.2 % (20.0-40.0) L 04/02/18 06:20 Lassen % (Auto) 9.5 % (0.0-10.0) 04/02/18 06:20 Eos % (Auto) 2.0 % (0.0-4.0) 04/02/18 06:20 Baso % (Auto) 0.5 % (0.0-2.0) 04/02/18 06:20 Neut # (Auto) 12.7 K/uL (1.8-7.0) H 04/02/18 06:20 Lymph # (Auto) 1.9 K/uL (1.0-4.3) 04/02/18 06:20 Lassen # (Auto) 1.6 K/uL (0.0-0.8) H 04/02/18 06:20 Eos # (Auto) 0.3 K/uL (0.0-0.7) 04/02/18 06:20 Baso # (Auto) 0.1 K/uL (0.0-0.2) 04/02/18 06:20 Neutrophils % (Manual) 79 % (50-75) H 03/31/18 11:09 Band Neutrophils % 1 % (0-2) 03/31/18 11:09 Lymphocytes % (Manual) 10 % (20-40) L 03/31/18 11:09 Reactive Lymphs % 1 % (0-0) H 03/30/18 07:00 Monocytes % (Manual) 8 % (0-10) 03/31/18 11:09 Eosinophils % (Manual) 2 % (0-4) 03/31/18 11:09 Platelet Estimate Normal (NORMAL) 03/31/18 11:09 Poikilocytosis (manual Slight 03/31/18 11:09 Anisocytosis (manual) Slight 03/31/18 11:09 Ovalocytes Slight 03/31/18 11:09 Yosvany Cells Slight 03/31/18 11:09 Sodium 130 mmol/L (132-148) L 04/02/18 06:20 Potassium 4.1 mmol/L (3.6-5.2) 04/02/18 06:20 Chloride 101 mmol/L (98-107) 04/02/18 06:20 Carbon Dioxide 24 mmol/L (22-30) 04/02/18 06:20 Anion Gap 10 (10-20) 04/02/18 06:20 BUN 21 mg/dL (9-20) H 04/02/18 06:20 Creatinine 0.7 mg/dL (0.8-1.5) L 04/02/18 06:20 Est GFR ( Amer) > 60 04/02/18 06:20 Est GFR (Non-Af Amer) > 60 04/02/18 06:20 POC Glucose (mg/dL) 127 mg/dL (65-110) H 03/28/18 17:23 Random Glucose 96 mg/dL (75-110) 04/02/18 06:20 Calcium 7.3 mg/dl (8.6-10.4) L 04/02/18 06:20 Phosphorus 2.8 mg/dL (2.5-4.5) 04/02/18 06:20 Magnesium 1.4 mg/dL (1.6-2.3) L 04/02/18 06:20 Total Bilirubin 0.4 mg/dL (0.2-1.3) 04/01/18 07:09 AST 47 U/L (17-59) 04/01/18 07:09 ALT 46 U/L (21-72) 04/01/18 07:09 Alkaline Phosphatase 80 U/L (38-126) 04/01/18 07:09 Total Protein 5.1 g/dL (6.3-8.3) L 04/01/18 07:09 Albumin 2.7 g/dL (3.5-5.0) L 04/01/18 07:09 Globulin 2.3 gm/dL (2.2-3.9) 04/01/18 07:09 Albumin/Globulin Ratio 1.2 (1.0-2.1) 04/01/18 07:09 Amylase 170 U/L (30-110) H D 04/02/18 06:20 Lipase 735 U/L (23-300) H 04/02/18 06:20 Carcinoembryonic Ag 1.2 ng/mL (0-3.0) 03/31/18 15:50 CA 19-9 Antigen 66.2 U/mL (0-37) H D 03/31/18 15:50 Vancomycin Trough 18.4 ug/mL (5.0-10.0) H 04/02/18 06:20 - Hospital Course Hospital Course: On admission: 82yo M with PMHx of HTN, hyperlipidemia, prostate cancer admitted for chronic appendicitis. Hospital Course: Patient went for laparoscopic converted to open appendectomy on 03/20/18. Patient developed post op ileus treated with NG tube. On 03/24/18 patient developed tachycardia and shortness of breath. He was placed on non rebreather mask and recieved Duonebs treatment. CTA was ordered to rule out PE, which showed no PE, + bilateral pleural effusions, + multifocal pneumonia. Patient was treated with IV vanco and cefepime. Patient was also treated for hypokalemia with potassium cloride 20mEq TID until potassium normalized. Abdominal wound cx was found to be ESBL +, sensitive to meropenem. Patient was then placed on meropenem 1g IV Q8H, which he will continue at [facility]. Instructions: Patient is to follow up with Dr. Feliciano in one week. Patient may take tylenol or advil for pain. Patient may shower. Patient is to continue IV meropenem 1g Q8H. Patient may resume regular diet + Ensure supplements. Discharge Exam - Additional Findings Additional findings: - Constitutional Appears: Non-toxic - Respiratory Exam Respiratory Exam: NORMAL BREATHING PATTERN. absent: Respiratory Distress - Cardiovascular Exam Cardiovascular Exam: +S1, +S2 - GI/Abdominal Exam GI & Abdominal Exam: Distended (mild), Soft. absent: Firm, Guarding, Rigid, Tenderness, Rebound Additional comments: yessi in place erythematous area at inferior portion of incision - Neurological Exam Neurological Exam: Alert, Awake - Psychiatric Exam Psychiatric exam: Normal Affect, Normal Mood Discharge Plan - Follow Up Plan Condition: GOOD Disposition: REHAB FACILITY/REHAB UNIT Instructions: Appendicitis, Adult (DC), Pneumonia, Adult (DC), Postoperative Ileus (DC), Appendectomy, Open Surgery (DC), Managing Pain After Surgery Additional Instructions: Patient is stable for discharge to subacute rehab as per Dr. Feliciano. Patient is to follow up with Dr. Feliciano in one week. Patient may take tylenol or advil for pain. Patient may shower. Patient is to continue PO antibiotics for another 4 days (04/06/18). Patient may resume regular diet + Ensure supplements. Referrals: Kaleb Feliciano Jr., MD [Staff Provider] -
[2018-04-02] MEDS: Potassium Chloride 20 mEq/15 ml LIQ UD PO SCH ×2 (10:31→13:47)
[2018-04-02] MEDS ORDERED: Meropenem 1 GM in Sodium Chloride 0.9% 100 ML IVPB SCH (13:00)
[2018-04-02 16:38] VITALS: BP 136/77; PULSE 87; TEMP 97.8
--- NOTE | 2018-04-02 22:44 | PN ---
DATE: 04/02/2018 LOCATION: 672, Bed A. SUBJECTIVE: This is an 82-year-old male, seen and examined in rounds early today, was incontinent of urine, with intermittent period of very soft fecal material with reported abdominal incision with drainage of small amount of discharge, complaining of generalized weakness and malaise. The entire chart is reviewed and today's lab results showed leukocytes of 16.5, hemoglobin 9.7, hematocrit 29.6 with normal platelet count, but sodium is still low 130. BUN 21, creatinine 0.7, calcium 7.3, magnesium 1.1 for which magnesium has to be replaced. Amylase 170, and lipase 735, was increased. CA19-9 antigen 66.2. PHYSICAL EXAMINATION: GENERAL: An 82-year-old male awake, alert, oriented, afebrile without complaint of chest pain, palpitation but slight shortness of breath and abdominal pain, much less than before without abdominal distention. VITAL SIGNS: The patient is afebrile with pulse of 82, respiratory rate 20-22, blood pressure 130/74. HEENT: Showed pale dry oral mucous membrane. Nonicteric sclera. LUNGS: Few scattered crepitation. Decreased air entry at bases. HEART: Positive S1 and S2. ABDOMEN: Soft with slight distention with generalized tenderness. No mass or organomegaly. Bowel sounds are hyperactive. EXTREMITIES: Without significant clubbing, cyanosis, or edema. NEUROLOGIC: No reported new neurologic deficits, sensory or motor. IMPRESSION: 1. Acute pancreatitis, gradually improving clinically. 2. Status post appendectomy. 3. Ileus, gradually improving. 4. Diarrhea, rule out pseudomembranous colitis. SUGGESTION: 1. Continue current management. 2. Repeat stool for C. diff. 3. Further recommendation to follow. Mary Tesfaye MD
[2018-04-03] MEDS ORDERED: Home Med 1 UNIT (Ibandronate Sodium [Boniva] 150 MG) PO SCH (10:00)
== END 2018-04-02 17:14 | DRG 341 ==
LOC: EDSTATUS 07:45 → C.9S 03-20 10:44 → C.6T 03-20 16:43
PROVIDERS: ADMIT Surgery Vascular Surgery; ATTEND Surgery Vascular Surgery
PROC: 0DJD4ZZ Inspection of Lower Intestinal Tract, Percutaneous Endoscopic Approach (ICD-10-PCS; 2018-03-20)
PROC: 0DTJ0ZZ Resection of Appendix, Open Approach (ICD-10-PCS; principal; 2018-03-20 12:00)
PROC: 3E0336Z Introduction of Nutritional Substance into Peripheral Vein, Percutaneous Approach (ICD-10-PCS; 2018-03-31)
DX: K35.80 Unspecified acute appendicitis (principal); J18.9 Pneumonia, unspecified organism; K85.90 Acute pancreatitis without necrosis or infection, unspecified; E46 Unspecified protein-calorie malnutrition; E87.2 Acidosis; K91.89 Other postprocedural complications and disorders of digestive system; K56.0 Paralytic ileus; Z53.31 Laparoscopic surgical procedure converted to open procedure; Y83.8 Other surgical procedures as the cause of abnormal reaction of the patient, or of later complication, without mention of misadventure at the time of the procedure; K63.9 Disease of intestine, unspecified; E87.6 Hypokalemia; K21.9 Gastro-esophageal reflux disease without esophagitis; D64.9 Anemia, unspecified; E86.0 Dehydration; E83.51 Hypocalcemia; E88.09 Other disorders of plasma-protein metabolism, not elsewhere classified; Z85.46 Personal history of malignant neoplasm of prostate